=== PATIENT | female | born 1930 | race Caucasian/White ===

== ENCOUNTER 2016-06-06 06:19 | Emergency (ER) | payer MEDICARE, OTHER ==
[~2016-06-06] VITALS: Ht 165.1 cm; Wt 92.0 kg
[~2016-06-06 06:19] MED LIST: ALPR-138 PO; ASPI81 PO; ATEN1TAB75 PO; COZA100T PO; FURO20TA PO; LEVO.1 PO; LORTA5 PO; WARF2.5 PO; ZETI10TA5 PO
[2016-06-06 06:38] VITALS: BP 212/105; PULSE 102; RESP 20; TEMP 97.7; O2SAT 96
--- NOTE | 2016-06-06 06:47 | PD ---
HPI Chief Complaint: Injury Time Seen by Provider: 06:45 Travel History International Travel<30 days: No Contact w/Intl Traveler<30days: No Traveled to known affect area: No History of Present Illness HPI 86-year-old female with history of hypertension dyslipidemia atrial fibrillation on warfarin diabetes venous stasis disease and suspect lipodermatosclerosis who has been receiving wound care with bandaging of the left lower leg states last bandage application was on had done well until around midnight started noticing increasing pain to the left lower extremity extending up into the left groin. Patient has noted some swelling. No chest pain no shortness of breath no pleuritic pain no hemoptysis. Patient denies any chest pain shortness of breath sweats orthopnea or PND. Patient states that the pain to her left lower leg associated her she is unable to weight-bear and ambulate with walker assistance. Patient denies any fever or chills. Patient did not take her morning medications. Patient rates pain as 4/ 10 in intensity at this time but 8/10 in intensity with attempted weightbearing. PFSH Past Medical History Narrative Medical htn, dm, chf, afib, valular heart disease, chronic venous stasis, obesity, dyslipidemia, hypothyroidism; cystocele repair, hysterectomy; no tobacco use; nursing notes reviewed Arthritis: Yes Autoimmune Disease: No Blood Disorders: No Anxiety: No Depression: No Heart Rhythm Problems: Yes Cancer: No Cardiovascular Problems: Yes Chemotherapy: No Congestive Heart Failure: Yes Diabetes: Yes Endocrine: Yes Genitourinary: No Immune Disorder: No Musculoskeletal: Yes Neurologic: No Psychiatric: No Reproductive: No Respiratory: No Radiation Therapy: No Thyroid Disease: Yes Past Surgical History Abdominal Surgery: No AICD: No Arteriovenous Shunt: No Cardiac Surgery: No Ear Surgery: No Endocrine Surgery: No Eye Surgery: No Genitourinary Surgery: Yes (BLADDER TACKING) Gynecologic Surgery: Yes (HYST) Insulin Pump: No Joint Replacement: No Oral Surgery: No Pacemaker: No Thoracic Surgery: No Other Surgery: Yes Social History Alcohol Use: No Tobacco Use: No Substance Use: No Allergies-Medications (Allergen,Severity, Reaction): Coded Allergies: Sulfa (Unverified Allergy, Unknown, 12/22/13) Reported Meds & Prescriptions Reported Meds & Active Scripts Active Reported Synthroid (Levothyroxine Sodium) 88 Mcg Tab 88 Mcg PO DAILY Lasix (Furosemide) 20 Mg Tab 20 Mg PO DAILY Alprazolam 0.25 Mg Tab 0.25 Mg PO Q8H PRN Warfarin 2.5 Mg Tab 2.5 Mg PO DAILY Review of Systems Except as stated in HPI: all other systems reviewed are Neg General / Constitutional: No: Fever, Chills HENT: No: Congestion Cardiovascular: No: Chest Pain or Discomfort Respiratory: No: Shortness of Breath, Orthopnea, Pleuritic Pain Gastrointestinal: No: Nausea, Vomiting, Abdominal Pain Genitourinary: No: Dysuria Musculoskeletal: Positive: Edema (LLE), Pain (LLE), No: Myalgias, Arthralgias Skin: Positive Rash Neurologic: No: Weakness Psychiatric: No: Anxiety Hematologic/Lymphatic: No: Lymph Node Enlargement Physical Exam Narrative GENERAL: Well-developed well-nourished obese female in no acute distress no respiratory distress SKIN: Warm and dry. HEAD: Normocephalic. EYES: No scleral icterus. No injection or drainage. NECK: Supple, trachea midline. No JVD or lymphadenopathy. CARDIOVASCULAR: Regular rate and rhythm without murmurs, gallops, or rubs. RESPIRATORY: Breath sounds equal bilaterally. No accessory muscle use. GASTROINTESTINAL: Abdomen soft, non-tender, nondistended. MUSCULOSKELETAL: No cyanosis, or edema. Left lower extremity lower leg with erythema tenderness edema of the lower leg and upper leg with palpable dorsalis pedis pulse; no pallor or coolness of the extremity. BACK: Nontender without obvious deformity. No CVA tenderness. Data Data Last Documented VS Vital Signs Date Time Temp Pulse Resp B/P Pulse Ox O2 Delivery O2 Flow Rate FiO2 06/06/16 06:38 97.7 102 20 212/105 96 Orders Us Leg Venous Doppler (06/06/16 ) Complete Blood Count With Diff (06/06/16 06:47) Basic Metabolic Panel (Bmp) (06/06/16 06:47) Act Partial Throm Time (Ptt) (06/06/16 06:47) Prothrombin Time / Inr (Pt) (06/06/16 06:47) Tibia/Fibula (Ap/Lat) (06/06/16 ) Lactic Acid Sepsis Protocol (06/06/16 06:47) Blood Culture (06/06/16 06:47) Losartan (Cozaar) (06/06/16 07:00) Acetamin-Hydrocod 325-5 Mg ([place] 5-325 (06/06/16 07:00) MDM Medical Decision Making Medical Screen Exam Complete: Yes Emergency Medical Condition: Yes Medical Record Reviewed: Yes Differential Diagnosis lipodermatosclerosis, cellulitis, dvt, uncontrolled hypertension Narrative Course Dressing removed from left lower leg with evidence of erythema tenderness to palpation serous drainage; specimens collected and sent for resulting; imaging studies ordered; patient administered morning antihypertensive as well as Lortab for pain Care signed over to Dr Wilde for pending evaluation and disposition Hellen Madrid MD Jun 06, 2016 06:47
[2016-06-06] MEDS ORDERED: SYNT88TA PO (06:49)
[2016-06-06] MEDS ORDERED: FURO1TAB62 PO (06:49)
[2016-06-06] MEDS ORDERED: WARF-18 PO (06:49)
[2016-06-06] MEDS ORDERED: ALPR0.25 PO (06:49)
[2016-06-06] MEDS ORDERED: LOSARTAN 25 MG TAB PO ONE (07:00)
[2016-06-06] MEDS ORDERED: ACETAMINOPHEN/HYDROcodone 325 MG/5 MG TAB PO ONE (07:00)
[2016-06-06 07:23] VITALS: BP 202/95; PULSE 89; RESP 18; O2SAT 98
[2016-06-06 07:35] LABS: AUTOMATED NEUTROPHIL # 3.4 TH/MM3 (1.8-7.7); BASOPHIL % 0.5 % (0.0-2.0); EOSINOPHIL # 0.1 TH/MM3 (0-0.4); HEMATOCRIT 44.3 % (35.0-46.0); HEMO FLAGS DIFF FINAL; LYMPH % 15.7 % (9.0-44.0); LYMPHOCYTE # 0.7 TH/MM3 (1.0-4.8); MEAN CELL VOLUME 89.7 FL (80.0-100.0); MEAN CORPUSCULAR HEMOGLOBIN 29.4 PG (27.0-34.0); MEAN CORPUSCULAR HGB CONC 32.8 % (32.0-36.0); MONO % 8.8 % (0.0-8.0); PLATELET COUNT 174 TH/MM3 (150-450); RED BLOOD COUNT 4.94 MIL/MM3 (4.00-5.30); RED CELL DISTRIBUTION WIDTH 13.6 % (11.6-17.2); WHITE BLOOD COUNT 4.6 TH/MM3 (4.0-11.0)
[2016-06-06] MEDS ORDERED: ATEN50TA PO (07:39)
[2016-06-06] MEDS ORDERED: DONE10TA7 PO (07:39)
[2016-06-06] MEDS ORDERED: GLIM1TAB PO (07:39)
[2016-06-06] MEDS ORDERED: ASPI81CH7 CHEW (07:39)
[2016-06-06] MEDS ORDERED: ZETI10TA5 PO (07:39)
[2016-06-06] MEDS ORDERED: LOSA25TA PO (07:39)
[2016-06-06 07:46] LABS: APTT (PATIENT) 32.4 SEC (24.3-30.1); INTERNATIONAL NORMALIZED RATIO 1.7 RATIO
--- NOTE | 2016-06-06 07:46 | PD ---
Physical Exam Date Seen by Provider: Jun 06, 2016 Data Data Last Documented VS Vital Signs Date Time Temp Pulse Resp B/P Pulse Ox O2 Delivery O2 Flow Rate FiO2 06/06/16 08:17 93 18 178/77 98 Room Air 06/06/16 06:38 97.7 Orders Us Leg Venous Doppler (06/06/16 ) Complete Blood Count With Diff (06/06/16 06:47) Basic Metabolic Panel (Bmp) (06/06/16 06:47) Act Partial Throm Time (Ptt) (06/06/16 06:47) Prothrombin Time / Inr (Pt) (06/06/16 06:47) Tibia/Fibula (Ap/Lat) (06/06/16 ) Lactic Acid Sepsis Protocol (06/06/16 06:47) Blood Culture (06/06/16 06:47) Losartan (Cozaar) (06/06/16 07:00) Acetamin-Hydrocod 325-5 Mg ([place] 5-325 (06/06/16 07:00) Hydralazine Inj (Apresoline Inj) (06/06/16 08:00) Urinalysis - C+S If Indicated (06/06/16 07:49) Urine Culture (06/06/16 07:53) Cephalexin (Keflex) (06/06/16 08:30) Labs Laboratory Tests Test 06/06/16 06/06/16 06/06/16 07:00 07:53 07:58 White Blood Count 4.6 TH/MM3 Red Blood Count 4.94 MIL/MM3 Hemoglobin 14.5 GM/DL Hematocrit 44.3 % Mean Corpuscular Volume 89.7 FL Mean Corpuscular Hemoglobin 29.4 PG Mean Corpuscular Hemoglobin 32.8 % Concent Red Cell Distribution Width 13.6 % Platelet Count 174 TH/MM3 Mean Platelet Volume 8.8 FL Neutrophils (%) (Auto) 73.0 % Lymphocytes (%) (Auto) 15.7 % Monocytes (%) (Auto) 8.8 % Eosinophils (%) (Auto) 2.0 % Basophils (%) (Auto) 0.5 % Neutrophils # (Auto) 3.4 TH/MM3 Lymphocytes # (Auto) 0.7 TH/MM3 Monocytes # (Auto) 0.4 TH/MM3 Eosinophils # (Auto) 0.1 TH/MM3 Basophils # (Auto) 0.0 TH/MM3 CBC Comment DIFF FINAL Differential Comment Prothrombin Time 19.0 SEC Prothromb Time International 1.7 RATIO Ratio Activated Partial 32.4 SEC Thromboplast Time Lactic Acid Level 1.1 mmol/L Urine Collection Type CLEAN CATCH Urine Color YELLOW Urine Turbidity CLOUDY Urine pH 6.0 Urine Specific [place] 1.009 Urine Protein NEG mg/dL Urine Glucose (UA) NEG mg/dL Urine Ketones NEG mg/dL Urine Occult Blood TRACE Urine Nitrite NEG Urine Bilirubin NEG Urine Leukocyte Esterase LARGE Urine RBC 0-3 /hpf Urine WBC 15-19 /hpf Urine WBC Clumps OCC Urine Squamous Epithelial 0-5 /hpf Cells Urine Bacteria MANY /hpf Urine Yeast (Budding) MANY Microscopic Urinalysis Comment CULTURE INDICATED Sodium Level 143 MEQ/L Potassium Level 4.2 MEQ/L Chloride Level 108 MEQ/L Carbon Dioxide Level 27.1 MEQ/L Anion Gap 8 MEQ/L Blood Urea Nitrogen 22 MG/DL Creatinine 0.97 MG/DL Estimat Glomerular Filtration 55 ML/MIN Rate Random Glucose 143 MG/DL Calcium Level 8.7 MG/DL [facility] Supervised Visit with ZULLY: No Interpretation(s) Vital Signs Date Time Temp Pulse Resp B/P Pulse Ox O2 Delivery O2 Flow Rate FiO2 06/06/16 07:23 89 18 202/95 98 Room Air 06/06/16 07:23 98 Room Air 06/06/16 06:38 97.7 102 20 212/105 96 Microbiology Date/Time Procedure Status Source Growth 06/06/16 07:00 Aerobic Blood Culture Received Blood Peripheral Pending 06/06/16 07:00 Anaerobic Blood Culture Received Blood Peripheral Pending 06/06/16 07:15 Aerobic Blood Culture Received Blood Peripheral Pending 06/06/16 07:15 Anaerobic Blood Culture Received Blood Peripheral Pending Laboratory Tests Test 06/06/16 06/06/16 06/06/16 07:00 07:53 07:58 White Blood Count 4.6 TH/MM3 (4.0-11.0) Red Blood Count 4.94 MIL/MM3 (4.00-5.30) Hemoglobin 14.5 GM/DL (11.6-15.3) Hematocrit 44.3 % (35.0-46.0) Mean Corpuscular Volume 89.7 FL (80.0-100.0) Mean Corpuscular Hemoglobin 29.4 PG (27.0-34.0) Mean Corpuscular Hemoglobin 32.8 % Concent (32.0-36.0) Red Cell Distribution Width 13.6 % (11.6-17.2) Platelet Count 174 TH/MM3 (150-450) Mean Platelet Volume 8.8 FL (7.0-11.0) Neutrophils (%) (Auto) 73.0 % (16.0-70.0) Lymphocytes (%) (Auto) 15.7 % (9.0-44.0) Monocytes (%) (Auto) 8.8 % (0.0-8.0) Eosinophils (%) (Auto) 2.0 % (0.0-4.0) Basophils (%) (Auto) 0.5 % (0.0-2.0) Neutrophils # (Auto) 3.4 TH/MM3 (1.8-7.7) Lymphocytes # (Auto) 0.7 TH/MM3 (1.0-4.8) Monocytes # (Auto) 0.4 TH/MM3 (0-0.9) Eosinophils # (Auto) 0.1 TH/MM3 (0-0.4) Basophils # (Auto) 0.0 TH/MM3 (0-0.2) CBC Comment DIFF FINAL Differential Comment Prothrombin Time 19.0 SEC (9.8-11.6) Prothromb Time International 1.7 RATIO Ratio Activated Partial 32.4 SEC Thromboplast Time (24.3-30.1) Lactic Acid Level 1.1 mmol/L (0.4-2.0) Urine Collection Type CLEAN CATCH Urine Color YELLOW (YELLW/STRAW) Urine Turbidity CLOUDY (CLEAR) Urine pH 6.0 (5.0-8.5) Urine Specific [place] 1.009 (1.002-1.035) Urine Protein NEG mg/dL (NEG-TRACE) Urine Glucose (UA) NEG mg/dL (NEG) Urine Ketones NEG mg/dL (NEG) Urine Occult Blood TRACE (NEG) Urine Nitrite NEG (NEG) Urine Bilirubin NEG (NEG) Urine Leukocyte Esterase LARGE (NEG) Urine RBC 0-3 /hpf (0-3) Urine WBC 15-19 /hpf (0-5) Urine WBC Clumps OCC (NONE) Urine Squamous Epithelial 0-5 /hpf (0-5) Cells Urine Bacteria MANY /hpf (NONE) Urine Yeast (Budding) MANY (NONE) Microscopic Urinalysis Comment CULTURE INDICATED Sodium Level 143 MEQ/L (136-145) Potassium Level 4.2 MEQ/L (3.5-5.1) Chloride Level 108 MEQ/L (98-107) Carbon Dioxide Level 27.1 MEQ/L (21.0-32.0) Anion Gap 8 MEQ/L (5-15) Blood Urea Nitrogen 22 MG/DL (7-18) Creatinine 0.97 MG/DL (0.50-1.00) Estimat Glomerular Filtration 55 ML/MIN (>89) Rate Random Glucose 143 MG/DL (74-106) Calcium Level 8.7 MG/DL (8.5-10.1) Last Impressions Tibia/Fibula X-Ray 06/06/16 0000 Signed Impressions: Service Date/Time: Monday, June 06, 2016 07:23 - CONCLUSION: Unremarkable examination of the left tibia. Carroll Morrison MD Lower Extremity Ultrasound 06/06/16 0000 Signed Impressions: Service Date/Time: Monday, June 06, 2016 08:21 - CONCLUSION: Normal examination. Carroll Morrison MD Differential Diagnosis DVT, cellulitis, electrolyte abnormality, Coumadin coagulopathy, peripheral vascular disease, lipodermatosclerosis, uncontrolled hypertension Narrative Course Patient signed out to me by Dr Madrid: follow up with labs and US of legs Patient is an 86-year-old female with history of diabetic venous-stasis who is currently on Coumadin therapy, presents to emergency room with complaints of left lower leg pain and swelling. She reports that she is being treated for her venous-stasis and possibly lipodermosclerosis with compression socks and compression bandages to leg. Reports that these have been helping her as now she has pulses to her lle - reports that in the past, her doctor's could not feel pulses in her left foot. Reports that wound care placed new bandages to her left lower extremity on , reports increased pain to her leg radiating to her groin with increased swelling. Reports increased pain to leg and pain with ambulation. Pt with no recent fall or injury. Labs and US pending, pt comfortable at this time. Patient does have palpable pulses to her left lower extremity at this time. Will continue to monitor patient carefully CBC: WBC 4.6 Hemoglobin 14.5 Hematocrit 44.3 Platelets 174 BMP: Sodium 143 Chloride 108 Potassium 4.2 BUN 22 Creatinine 0.97 Lactic acid 1.1 Coags PT 19 PTT 32.4 INR 1.7 - pt is subtherapeutic on her coumadin UA: Large leuk esterase, 15-19wbc, many bacteria, many yeast xray of tib/fib: unremarkable US pending bp controlled with her oral dose of antihypertensive, pt did not receive dose of hydralazine in ER Ultrasound of the leg with no evidence of DVT INR 1.7, patient subtherapeutic Discussed with patient that she will be discharged home with instructions to follow-up with her primary care doctor. Patient understands that she will need to call her primary care doctor for further instructions her Coumadin as her INR is 1.7 and she is subtherapeutic Patient does have a bladder infection, which will also help treat her possible left lower extremity cellulitis. Doppler also the lower extremity negative, understands need for repeat ultrasound in 1 week if swelling persists Signs and symptoms of when to return to ER reviewed with patient in detail Patient initially agreeable to discharge, patient's daughter arrived emergency room to pick patient up, daughter reports that patient cannot ambulate by herself with her walker, reports the patient cannot go home as patient lives by herself and feels that is not safe for patient to be home by herself if she cannot ambulate or care for self. Patients daughter requests the patient be admitted to the hospital for this reason. reviewed case with chargemaster analyst, will get case management involved in case Diagnosis Primary Impression: Lower extremity edema Qualified Code: R60.0 - Edema of left lower extremity Additional Impressions: Subtherapeutic international normalized ratio (INR) UTI (urinary tract infection) Qualified Code: N30.01 - Acute cystitis with hematuria Cellulitis Patient Instructions: General Instructions, Narcotic given in the ED Additional Instruction: Please provide patient with a copy of her lab work as well as her ultrasound report performed while in the emergency room today Please follow-up with your primary care doctor as soon as possible Please follow-up with all cultures from today Please have a repeat ultrasound in her leg in 1 week if swelling persists Return to emergency room if symptoms worsen or progress Med/Other Pt SpecificInfo: Prescription(s) given Scripts Cephalexin (Keflex)500 Mg [id number] Mg PO Q6H 10 Days Ref 0 Prov:Chula Wilde DO 06/06/16 Disposition: 01 DISCHARGE HOME Condition: Stable Chula Wilde DO Jun 06, 2016 07:46
--- NOTE | 2016-06-06 07:56 | RADHPO ---
EXAM DATE/TIME: 06/06/2016 07:23 [facility] COMPARISON: No previous studies available for comparison. INDICATIONS : Left distal tib/fib pain with inflammation. No known injury. MEDICAL HISTORY : Diabetes mellitus type II. Hypertension. SURGICAL HISTORY : None. ENCOUNTER: Initial ACUITY: 2 months PAIN SCORE: 7/10 LOCATION: Left distal tib/fib FINDINGS: Two view examination of the left tibia demonstrates no evidence of fracture or dislocation. Bony min eralization is normal. The soft tissue structures are intact. CONCLUSION: Unremarkable examination of the left tibia. Carroll Morrison MD on June 06, 2016 at 7:54 Board Certified Radiologist. This report was verified electronically.
[2016-06-06] MEDS ORDERED: hydrALAZINE HCL 20 MG/ML VIAL IV PUSH ONE (08:00)
[2016-06-06 08:05] LABS: BLOOD, URINE TRACE (NEG); GLUCOSE,URINE NEG (NEG); KETONE, URINE NEG (NEG); NITRITE,URINE NEG (NEG)
[2016-06-06 08:10] LABS: METHOD OF COLLECTION CLEAN CATCH; URINE COLOR YELLOW (YELLW/STRAW)
[2016-06-06 08:12] LABS: POTASSIUM 4.2 MEQ/L (3.5-5.1)
[2016-06-06 08:12] LABS: BACTERIA, URINE MANY /hpf; COMMENT (UR) CULTURE INDICATED; CULTURE IF INDICATED CULTURE INDICATED; RBC, URINE 0-3 /hpf (0-3); SQUAMOUS EPITHELIAL CELL URINE 0-5 /hpf (0-5); WBC, URINE 15-19 /hpf (0-5)
[2016-06-06 08:15] LABS: BICARBONATE 27.1 MEQ/L (21.0-32.0)
[2016-06-06 08:17] VITALS: BP 178/77; PULSE 93; RESP 18; O2SAT 98
[2016-06-06] MEDS ORDERED: CEPHALEXIN MONOHYDRATE 500 MG CAP PO ONE (08:30)
--- NOTE | 2016-06-06 09:00 | RADHPO ---
EXAM DATE/TIME: 06/06/2016 08:21 [facility] COMPARISON: No previous studies available for comparison. INDICATIONS : Left leg swelling and pain. MEDICAL HISTORY : Hypertension. Congestive heart failure. Thyroid disease. Afib. Arthritis. Diabetes. SURGICAL HISTORY : Hysterectomy. Bladder tacking. ENCOUNTER: Initial ACUITY: 1 day PAIN SCORE: 4/10 LOCATION: Left leg. TECHNIQUE: Venous ultrasound of the leg was performed from the inguinal ligament to the proximal calf. Real-alfie e, color Doppler and spectral tracing, compression and augmentation techniques were used. FINDINGS: There is normal compressibility of the deep venous system from the inguinal region to the proximal ca lf. No echogenic clot is seen in the lumen of the common femoral, femoral, popliteal, and posterior tibial veins. There is a normal response of the venous system to proximal and distal augmentation an d respiration. CONCLUSION: Normal examination. Carroll Morrison MD on June 06, 2016 at 8:58 Board Certified Radiologist. This report was verified electronically.
[2016-06-06] MEDS ORDERED: CEPH-460 PO (10:19)
[2016-06-06 11:48] VITALS: BP 168/78
== END 2016-06-06 11:50 | disposition home or self-care (01) ==
LOC: PHED 06:19
DX: R60.0 Localized edema (principal); M79.662 Pain in left lower leg; N39.0 Urinary tract infection, site not specified; R82.90 Unspecified abnormal findings in urine; I50.9 Heart failure, unspecified; E03.9 Hypothyroidism, unspecified; E78.5 Hyperlipidemia, unspecified; I10 Essential (primary) hypertension; I48.91 Unspecified atrial fibrillation; Z79.01 Long term (current) use of anticoagulants
CPT/HCPCS: 73590; 80048; 81001; 83605; 85025; 85610; 85730; 87040; 87086; 93971

== ENCOUNTER 2016-06-13 16:06 | Observation (INO) | payer MEDICARE, OTHER ==
[2016-06-13] VITALS (8 sets, daily range): BP systolic 170–199; BP diastolic 81–94; PULSE 70–95; RESP 16–20; TEMP 97.4–97.7; O2SAT 96–99
[~2016-06-13] VITALS: Ht 153.7 cm; Wt 89.1 kg
[~2016-06-13 16:06] MED LIST changes: -ALPR-138 PO; +ALPR0.25 PO; -ASPI81 PO; +ASPI81CH7 CHEW; -ATEN1TAB75 PO; +ATEN50TA PO; +CEPH-460 PO; -COZA100T PO; +DONE10TA7 PO; +FURO1TAB62 PO; -FURO20TA PO; +GLIM1TAB PO; -LEVO.1 PO; -LORTA5 PO; +LOSA25TA PO; +SYNT88TA PO; +WARF-18 PO; -WARF2.5 PO
[2016-06-13] MEDS ORDERED: SODIUM CHLORIDE 0.9% FLUSH 5 ML FLUSH IVF PRN (16:30)
--- NOTE | 2016-06-13 16:31 | PD ---
HPI Chief Complaint: Chest Pain Time Seen by Provider: 16:15 Travel History International Travel<30 days: No Contact w/Intl Traveler<30days: No Traveled to known affect area: No History of Present Illness HPI Patient 86-year-old female presents with sharp intermittent chest pain under her left breast for the past couple of days. Patient states most recent episode happened about 3:30 lasted for only a few moments and resided. Patient states that she was not accompanied with shortness of breath palpitations nausea or vomiting. Patient does relate a history of having rehabilitation having to do a lot of arm work recently. Patient states in the wrap and her before. She does follow with Dr. John for atrial fibrillation. Currently her pain is resolved and she thinks her something wrong with her rib cage. PFSH Past Medical History Arthritis: Yes Autoimmune Disease: No Blood Disorders: No Anxiety: No Depression: No Heart Rhythm Problems: Yes Cancer: No Cardiovascular Problems: Yes Chemotherapy: No Congestive Heart Failure: Yes Diabetes: Yes Endocrine: Yes Genitourinary: No Immune Disorder: No Musculoskeletal: Yes Neurologic: No Psychiatric: No Reproductive: No Respiratory: No Radiation Therapy: No Thyroid Disease: Yes Menopausal: Yes Past Surgical History Abdominal Surgery: No AICD: No Arteriovenous Shunt: No Cardiac Surgery: No Ear Surgery: No Endocrine Surgery: No Eye Surgery: No Genitourinary Surgery: Yes (BLADDER TACKING) Gynecologic Surgery: Yes (HYST) Insulin Pump: No Joint Replacement: No Oral Surgery: No Pacemaker: No Thoracic Surgery: No Other Surgery: Yes Social History Alcohol Use: No Tobacco Use: No Substance Use: No Allergies-Medications (Allergen,Severity, Reaction): Coded Allergies: Sulfa (Unverified Allergy, Unknown, 06/13/16) Reported Meds & Prescriptions Reported Meds & Active Scripts Active Keflex (Cephalexin) 500 Mg Cap 500 Mg PO Q6H 10 Days Reported Fluoxetine (Fluoxetine HCl) 10 Mg Tab 10 Mg PO DAILY Glimepiride 1 Mg Tab 1 Mg PO DAILY Take with breakfast or first main meal Zetia (Ezetimibe) 10 Mg Tab 10 Mg PO DAILY Atenolol 50 Mg Tab 50 Mg PO DAILY Losartan (Losartan Potassium) 25 Mg Tab 25 Mg PO DAILY Aspirin Children's (Aspirin) 81 Mg Chew 81 Mg CHEW DAILY Synthroid (Levothyroxine Sodium) 88 Mcg Tab 88 Mcg PO DAILY Lasix (Furosemide) 20 Mg Tab 20 Mg PO DAILY Warfarin 2.5 Mg Tab 2.5 Mg PO DAILY Review of Systems Except as stated in HPI: all other systems reviewed are Neg Physical Exam Narrative GENERAL: Well-developed well-nourished in apparent distress. SKIN: Warm and dry. Left lower extremity is wrapped in [place]. She states that home health nurse is becoming and treating her at home with Neosporin. HEAD: Atraumatic. Normocephalic. EYES: Pupils equal and round. No scleral icterus. No injection or drainage. ENT: No nasal bleeding or discharge. Mucous membranes pink and moist. NECK: Trachea midline. No JVD. CARDIOVASCULAR: Regular rate and rhythm. No murmur appreciated. There is some tenderness in the midaxillary region just inferior to the lateral most breast. No lesion no bruising no laceration. 2+ bilateral equal pulses in all 4 extremities. RESPIRATORY: No accessory muscle use. Clear to auscultation. Breath sounds equal bilaterally. GASTROINTESTINAL: Abdomen soft, non-tender, nondistended. Hepatic and splenic margins not palpable. MUSCULOSKELETAL: No obvious deformities. No clubbing. No cyanosis. No edema. NEUROLOGICAL: Awake and alert. No obvious cranial nerve deficits. Motor grossly within normal limits. Normal speech. PSYCHIATRIC: Appropriate mood and affect; insight and judgment normal. Data Data Last Documented VS Vital Signs Date Time Temp Pulse Resp B/P Pulse Ox O2 Delivery O2 Flow Rate FiO2 06/13/16 16:53 195/86 199/93 06/13/16 16:30 97.7 95 18 99 06/13/16 16:25 Room Air Orders Electrocardiogram (06/13/16 16:25) Ckmb (Isoenzyme) Profile (06/13/16 16:25) Complete Blood Count With Diff (06/13/16 16:25) Comprehensive Metabolic Panel (06/13/16 16:25) Magnesium (Mg) (06/13/16 16:25) Prothrombin Time / Inr (Pt) (06/13/16 16:25) Act Partial Throm Time (Ptt) (06/13/16 16:25) Troponin I (06/13/16 16:25) Ecg Monitoring (06/13/16 16:25) Bilateral Bp Monitoring (06/13/16 16:25) Iv Access Insert/Monitor (06/13/16 16:25) Oximetry (06/13/16 16:25) Oxygen Administration (06/13/16 16:25) Sodium Chloride 0.9% Flush (Ns Flush) (06/13/16 16:30) Chest, Pa & Lat (06/13/16 16:25) Troponin I (06/13/16 17:56) Electrocardiogram (06/13/16 ) Aspirin Chew (Aspirin Chew) (06/13/16 18:15) Admit Order (Ed Use Only) (06/13/16 ) Labs Laboratory Tests Test 06/13/16 06/13/16 06/13/16 16:25 17:11 18:00 White Blood Count 6.6 TH/MM3 Red Blood Count 5.06 MIL/MM3 Hemoglobin 14.8 GM/DL Hematocrit 44.7 % Mean Corpuscular Volume 88.3 FL Mean Corpuscular Hemoglobin 29.3 PG Mean Corpuscular Hemoglobin 33.2 % Concent Red Cell Distribution Width 13.5 % Platelet Count 210 TH/MM3 Mean Platelet Volume 8.5 FL Neutrophils (%) (Auto) 71.7 % Lymphocytes (%) (Auto) 16.8 % Monocytes (%) (Auto) 10.2 % Eosinophils (%) (Auto) 0.8 % Basophils (%) (Auto) 0.5 % Neutrophils # (Auto) 4.7 TH/MM3 Lymphocytes # (Auto) 1.1 TH/MM3 Monocytes # (Auto) 0.7 TH/MM3 Eosinophils # (Auto) 0.1 TH/MM3 Basophils # (Auto) 0.0 TH/MM3 CBC Comment DIFF FINAL Differential Comment Prothrombin Time 18.2 SEC Prothromb Time International 1.6 RATIO Ratio Activated Partial 35.0 SEC Thromboplast Time Sodium Level 140 MEQ/L Potassium Level 4.0 MEQ/L Chloride Level 101 MEQ/L Carbon Dioxide Level 30.9 MEQ/L Anion Gap 8 MEQ/L Blood Urea Nitrogen 21 MG/DL Creatinine 1.10 MG/DL Estimat Glomerular Filtration 47 ML/MIN Rate Random Glucose 87 MG/DL Calcium Level 9.0 MG/DL Magnesium Level 2.0 MG/DL Total Bilirubin 1.2 MG/DL Aspartate Amino Transf 14 U/L (AST/SGOT) Alanine Aminotransferase 19 U/L (ALT/SGPT) Alkaline Phosphatase 93 U/L Total Creatine Kinase 84 U/L Troponin I LESS THAN 0.02 LESS THAN 0.02 NG/ML NG/ML Total Protein 7.6 GM/DL Albumin 3.5 GM/DL MDM Medical Decision Making Medical Screen Exam Complete: Yes Emergency Medical Condition: Yes Interpretation(s) EKG says H or fibrillation with an overall ventricular rate of 80, normal axis and normal R-wave progression. There is isolated T-wave flattening bordering on inversion in lead III. His nonspecific change. Comparison to 11/09/2007 shows no significant change. Differential Diagnosis ACS, NV, chest wall pain, muscle strain, muscle strain, rib fracture. Narrative Course Review the patient's records shows that on June 06 of this year patient had a an ultrasound of the bilateral lower extremity showing no DVT. Patient arrival is chest pain-free. She does take a baby aspirin every morning. Hold his aspirin was given in the emergency department. Her symptoms are highly atypical for ACS however patient has multiple risk factors, obesity, hypertension, lipidemia, diabetes. She's not had a stress test in some time. She is followed by Dr. John. Discussed with the patient that her symptoms are atypical but she does have significant risk factors. Discussed with recommend he do follow up with Dr. Richmond admission to the hospital for consideration of a stress test. They are unsure whether they can get in Dr. Lenz nurse's weak and not for observation. Patient was discussed with Dr. Solo who placed in observation status. Initial EKG negative, repeat EKG showed no change. Initial troponin negative. Considering patient's only been having symptoms since 3:30 the patient's troponin was repeated at 6:30. This test is pending on admission. Diagnosis Primary Impression: Chest pain Qualified Code: R07.9 - Chest pain, unspecified type Admitting Information Admitting Physician Requests: Observation Condition: Stable Yevgeniy Pantoja MD Jun 13, 2016 16:31
[2016-06-13 16:43] LABS: AUTOMATED NEUTROPHIL # 4.7 TH/MM3 (1.8-7.7); BASOPHIL % 0.5 % (0.0-2.0); EOSINOPHIL # 0.1 TH/MM3 (0-0.4); EOSINOPHIL % 0.8 % (0.0-4.0); HEMATOCRIT 44.7 % (35.0-46.0); HEMO FLAGS DIFF FINAL; LYMPH % 16.8 % (9.0-44.0); LYMPHOCYTE # 1.1 TH/MM3 (1.0-4.8); MEAN CELL VOLUME 88.3 FL (80.0-100.0); MEAN CORPUSCULAR HEMOGLOBIN 29.3 PG (27.0-34.0); MEAN CORPUSCULAR HGB CONC 33.2 % (32.0-36.0); MONO % 10.2 % (0.0-8.0); NEUT % 71.7 % (16.0-70.0); PLATELET COUNT 210 TH/MM3 (150-450); RED BLOOD COUNT 5.06 MIL/MM3 (4.00-5.30); RED CELL DISTRIBUTION WIDTH 13.5 % (11.6-17.2); WHITE BLOOD COUNT 6.6 TH/MM3 (4.0-11.0)
[2016-06-13] MEDS ORDERED: FLUO10TA PO (16:47)
[2016-06-13 17:14] LABS: INTERNATIONAL NORMALIZED RATIO 1.6 RATIO; PROTHROMBIN TIME - PATIENT 18.2 SEC (9.8-11.6)
--- NOTE | 2016-06-13 17:23 | RADHPO ---
EXAM DATE/TIME: 06/13/2016 16:54 [place] COMPARISON: No previous studies available for comparison. INDICATIONS : Chest pain MEDICAL HISTORY : Congestive heart failure. SURGICAL HISTORY : None. ENCOUNTER: Initial ACUITY: 2 days PAIN SCORE: 10/10 LOCATION: Left chest FINDINGS: The heart is mildly enlarged. Minimal central pulmonary vascular congestion is noted. There is no a cute focal alveolar consolidation. Degenerative changes and scoliosis of the thoracic spine are note d. CONCLUSION: 1. Cardiomegaly. 2. Minimal central pulmonary vascular congestion. 3. Degenerative changes and scoliosis of the thoracic spine. Yevgeniy Crawley MD on June 13, 2016 at 17:19 Board Certified Radiologist. This report was verified electronically.
[2016-06-13 17:25] LABS: CHLORIDE 101 MEQ/L (98-107); SODIUM (NA) 140 MEQ/L (136-145)
[2016-06-13 17:29] LABS: ANION GAP 8 MEQ/L (5-15); BICARBONATE 30.9 MEQ/L (21.0-32.0); BLOOD UREA NITROGEN 21 MG/DL (7-18)
[2016-06-13 17:32] LABS: ALT (GPT) 19 U/L (10-53); AST (GOT) 14 U/L (15-37); GLOMERULAR FILTRATION RATE 47 ML/MIN (>89)
[2016-06-13 17:33] LABS: TOTAL BILIRUBIN ADULT 1.2 MG/DL (0.2-1.0)
[2016-06-13 17:35] LABS: ALKALINE PHOSPHATASE 93 U/L (45-117)
[2016-06-13 17:38] LABS: CREATINE KINASE 84 U/L (26-192)
[2016-06-13] MEDS ORDERED: ASPIRIN 81 MG CHEW TAB CHEW ONE (18:15)
--- NOTE | 2016-06-13 21:26 | EKG ---
Date Performed: 06/13/2016 Time Performed: 18:00:02 PTAGE: 86 years EKG: Atrial fibrillation Inferior/lateral ST changes are nonspecific Abnormal ECG PREVIOUS TRACING : 06/13/2016 16.10 No significant change from previous tracing noted. DOCTOR: Fausto Luz Interpretating Date/Time 06/13/2016 21:24:38
--- NOTE | 2016-06-13 21:29 | EKG ---
Date Performed: 06/13/2016 Time Performed: 16:10:42 PTAGE: 86 years EKG: Atrial fibrillation Inferior ST changes are nonspecific Abnormal ECG PREVIOUS TRACING : 11/15/2008 21.58 Compared to previous tracing, atrial fibrillation has repla becky Sinus rhythm with PACs. DOCTOR: Fausto Luz Interpretating Date/Time 06/13/2016 21:27:58
[2016-06-13] MEDS ORDERED: ONDANSETRON HCL 4 MG/2 ML VIAL IVP PRN (23:15)
[2016-06-13] MEDS ORDERED: NALOXONE HCL 0.4 MG/ML AMP IV PRN (23:15)
[2016-06-13] MEDS ORDERED: SODIUM CHLORIDE 0.9% FLUSH 5 ML FLUSH FLUSH PRN (23:15)
[2016-06-13] MEDS ORDERED: ACETAMINOPHEN 325 MG TAB PO PRN (23:15)
[2016-06-14] VITALS (7 sets, daily range): BP systolic 145–178; BP diastolic 50–90; PULSE 71–92; RESP 16–20; TEMP 96–97.4; O2SAT 95–98
[2016-06-14] MEDS: EZETIMIBE 10 MG TAB PO SCH (10:06)
[2016-06-14] MEDS: SODIUM CHLORIDE 0.9% FLUSH 5 ML FLUSH FLUSH SCH ×2 (10:07→21:39)
[2016-06-14] MEDS: ASPIRIN 81 MG CHEW TAB CHEW SCH (10:07)
[2016-06-14] MEDS: FUROSEMIDE 20 MG TAB PO SCH (10:07)
[2016-06-14] MEDS: LOSARTAN 25 MG TAB PO SCH (10:07)
[2016-06-14] MEDS: ATENOLOL 50 MG TAB PO SCH (10:07)
[2016-06-14] MEDS: CEPHALEXIN MONOHYDRATE 500 MG CAP PO SCH ×4 (10:09→23:03)
[2016-06-14 10:14] LABS: INTERNATIONAL NORMALIZED RATIO 1.8 RATIO; PROTHROMBIN TIME - PATIENT 20.2 SEC (9.8-11.6)
[2016-06-14] MEDS: GLIMEPIRIDE 1 MG TAB PO SCH (10:43)
[2016-06-14] MEDS: FLUoxetine HCL 10 MG CAP PO SCH (10:43)
[2016-06-14] MEDS: LEVOTHYROXINE SODIUM 88 MCG TAB PO SCH (10:43)
--- NOTE | 2016-06-14 12:45 | MH ---
cc: PAUL MAGANA MD DATE OF ADMISSION: 06/13/2016 CHIEF COMPLAINT Chest pain. HISTORY OF PRESENT ILLNESS This is an 86-year-old female with past medical and surgical history significant for arthritis, atrial fibrillation, congestive heart failure, diabetes mellitus, hypothyroidism, history of bladder surgery and history of hysterectomy who came to the ER at [facility] complaining of sharp chest pain which was on the left lower side and this pain began at about 03:30 yesterday and lasted for a few minutes. It was not accompanied with shortness of breath or any palpitation or any nausea or vomiting and no radiation. It was a localized pain. Denies any painful breathing or worsening of the pain with deep breathing from that side. She has been in a rehab and getting physical therapy. Other than that, when I examined the patient the patient denies any chest pain at the time of the examination. Denies any fever, chills cough. Denies any nausea or vomiting, diarrhea, constipation. Denies any blood in the stool, black stool or any other symptoms. Other than that nothing significant. PAST MEDICAL-SURGICAL HISTORY As dictated above. SOCIAL HISTORY Denies smoking or taking any drugs. She lives at home alone. She is retired dancer. ALLERGY SULFA DRUGS. MEDICATIONS 1. Keflex 500 mg q. 6 hours for tendons. 2. Fluoxetine 10 mg p.o. daily. 3. Glimepiride 1 mg p.o. daily. 4. Zetia 10 mg p.o. daily. 5. Atenolol 50 mg p.o. daily. 6. Losartan 25 mg p.o. daily. 7. Aspirin 81 mg daily. 8. Synthroid 88 mcg p.o. daily. 9. Lasix 20 mg p.o. daily. 10. Coumadin 2.5 mg p.o. daily. REVIEW OF SYSTEMS All review of systems are positive at the time of the examination. PHYSICAL EXAMINATION GENERAL: This is an 86-year-old female, laying on the bed, not in any acute distress. VITAL SIGNS: Temperature is 96.0, heart rate 90, respirations 18, blood pressure 149/90, O2 saturation 96% at room air. HEENT: Normocephalic, atraumatic. EOMI. PERRLA. Oral mucosa moist. NECK: Supple. No visible thyromegaly or neck mass. Trachea central. CVS: Regular rate and rhythm. LUNGS: Respirations clear to auscultation bilaterally. ABDOMEN: Soft, nontender. Bowel sounds audible. EXTREMITIES: No pedal edema, no calf tenderness, no joint swelling or erythema. Full range of motion of all extremities. NEUROLOGIC: Awake, alert, oriented x 4. No focal deficits. SKIN: Warm and dry. PSYCHIATRIC: The patient is cooperative. Mood and affect is normal. LABORATORY DATA CBC is totally unremarkable except for neutrophils of 71.7 - high. Monos 10.2 - high. BUN 21 - high, creatinine 1.10 - high. Total bilirubin 1.2 - high. AST 40 - low. Cardiac enzymes - Troponin I 0.02 x 3. Total protein 7.6, albumin 3.5, PT 18.2, INR 1.6, APTT 35.0. Another PT done today shows PT 20.2, INR 1.8. X-RAYS Chest x-ray was done and shows cardiomegaly, minimal central pulmonary vascular congestion, degenerative changes and scoliosis of the thoracic spine. ASSESSMENT AND PLAN 1. This is an 86-year-old female who came to the ER diagnosed with chest pain, rule out acute coronary syndrome. Cardiac enzymes, troponin I x 3 within normal limits. Looks like atypical chest pain. Cardiology consulted. Further recommendation per Cardiology. 2. History of atrial fibrillation. Continue home medication. The patient is on Coumadin, checking INR daily. INR today 1.8. The patient is on atenolol. 3. History of congestive heart failure most likely chronic with systolic heart failure. The patient is on Lasix. 4. History of hypertension. Continue home medications. 5. History of hyperlipidemia. Continue home medications. 6. History of diabetes mellitus. AD 1800 calorie diet. NovoLog low-dose sliding scale. Check blood sugars at bedtime. Monitor blood sugar closely. 7. History of depression. Continue fluoxetine. 8. Hypothyroidism. Continue with levothyroxine 88 mcg p.o. daily. 9. DVT prophylaxis. The patient is on Coumadin. 10. GI prophylaxis. Protonix 40 mg p.o. daily. 11. We are going to manage the patient on a daily basis and make recommendations on a daily basis. Paul Magana MD EA/FOREIGN /12:02 PM /12:13 PM
[2016-06-14] MEDS: PANTOPRAZOLE SOD 40 MG DELAYED RELEASE TAB PO SCH (13:39)
[2016-06-14] MEDS ORDERED: WARFARIN SOD 2.5 MG TAB PO SCH (16:00)
[2016-06-15] VITALS: BP 184/78; PULSE 82; RESP 18; TEMP 97.8; O2SAT 98
[2016-06-15 04:00] VITALS: BP 153/89; PULSE 85; RESP 18; TEMP 97.7; O2SAT 98
[2016-06-15] MEDS: LEVOTHYROXINE SODIUM 88 MCG TAB PO SCH (05:56)
[2016-06-15] MEDS: CEPHALEXIN MONOHYDRATE 500 MG CAP PO SCH (05:56)
[2016-06-15 06:36] LABS: PROTHROMBIN TIME - PATIENT 22.3 SEC (9.8-11.6)
[2016-06-15 08:00] VITALS: BP 179/90; PULSE 76; RESP 20; TEMP 98; O2SAT 99
--- NOTE | 2016-06-15 08:01 | HHI.PR ---
Subjective History of Present Illness Patient feel better D/W RN TAVARES Perez at bed side..OK to DC Per cardiology. Review of Systems Constitutional Constitutional Remarks All ROS Normal. Vitals/Results Intake & Output 06/14/16 06/14/16 06/15/16 15:00 23:00 07:00 Intake Total 0 ml 240 ml 420 ml Balance 0 ml 240 ml 420 ml Intake Oral 0 ml 240 ml 420 ml # Voids 4 1 2 # Bowel Movements 0 0 Vital Signs Vital Signs Date Time Temp Pulse Resp B/P Pulse Ox O2 Delivery O2 Flow Rate FiO2 06/15/16 04:00 97.7 85 18 153/89 98 06/15/16 00:00 97.8 82 18 184/78 98 06/14/16 20:00 77 06/14/16 20:00 97.4 78 16 158/86 97 06/14/16 19:45 97 21 06/14/16 16:00 96.5 72 20 154/50 96 06/14/16 12:00 96.4 85 18 145/77 97 CBC/BMP: 06/13/16 1625 06/13/16 1711 Lab Results Laboratory Tests Test 06/14/16 06/15/16 10:00 06:10 Prothrombin Time 20.2 SEC 22.3 SEC Prothromb Time International 1.8 RATIO 2.0 RATIO Ratio Physical Exam General General Appearance: No Acute Distress, Comfortable Eyes Eye Exam: Pupils Equal, Pupils Reactive, Sclera White, Extraocular Movement Intact Throat Throat Exam: Oral Mucosa [place] & Moist, Oral Pharynx Normal Neck Neck Exam: Neck Supple, Trachea Midline Pulmonary Resp Exam: Clear Bilaterally, Breath Sounds Equal, No Distress Cardiology CV Exam: Regular Gastrointestinal/Abdomen GI Exam: Soft, Non-Tender, Bowel Sounds Present Musculoskeletal MS Exam: Joints Intact, Normal Tone Integumentary Skin Exam: Clear, Warm, Dry, Intact, Normal Turgor Extremeties Extremities Exam: No Edema Neurologic Neuro Exam: Alert, Awake, Oriented, Speech Clear, Moving All Extremities, No Focal Deficits VTE Prophylaxis VTE Prophylaxis Meds: Coumadin PUD Prophylasis PUD Prophylaxis: Protonix Assessment/Plan Assessment/Plan ASSESSMENT AND PLAN 1. This is an 86-year-old female who came to the ER diagnosed with chest pain, rule out acute coronary syndrome. Cardiac enzymes, troponin I x 3 within normal limits. Looks like atypical chest pain. Cardiology consulted. Further recommendation per Cardiology...ok to DC Per cardiology 2. History of atrial fibrillation. Continue home medication. The patient is on Coumadin, checking INR daily. INR today 2.0. The patient is on atenolol. 3. History of congestive heart failure most likely chronic with systolic heart failure. The patient is on Lasix. 4. History of hypertension. Continue home medications. 5. History of hyperlipidemia. Continue home medications. 6. History of diabetes mellitus. AD 1800 calorie diet. NovoLog low-dose sliding scale. Check blood sugars at bedtime. Monitor blood sugar closely. 7. History of depression. Continue fluoxetine. 8. Hypothyroidism. Continue with levothyroxine 88 mcg p.o. daily. 9. DVT prophylaxis. The patient is on Coumadin. 10. GI prophylaxis. Protonix 40 mg p.o. daily. OK to DC home today. f/u with PCP/ Cardiology 1 week. Discussed Condition with: Patient Paul Rivera MD Jun 15, 2016 08:01
[2016-06-15] MEDS: EZETIMIBE 10 MG TAB PO SCH (08:03)
[2016-06-15] MEDS: FLUoxetine HCL 10 MG CAP PO SCH (08:03)
[2016-06-15] MEDS: GLIMEPIRIDE 1 MG TAB PO SCH (08:03)
[2016-06-15] MEDS: LOSARTAN 25 MG TAB PO SCH (08:03)
[2016-06-15] MEDS: ATENOLOL 50 MG TAB PO SCH (08:03)
[2016-06-15] MEDS: SODIUM CHLORIDE 0.9% FLUSH 5 ML FLUSH FLUSH SCH (08:03)
[2016-06-15] MEDS: PANTOPRAZOLE SOD 40 MG DELAYED RELEASE TAB PO SCH (08:03)
[2016-06-15] MEDS: FUROSEMIDE 20 MG TAB PO SCH (08:03)
[2016-06-15] MEDS: ASPIRIN 81 MG CHEW TAB CHEW SCH (08:03)
--- NOTE | 2016-06-15 10:05 | MB ---
cc: PORFIRIO JOHN M.D., EJAZ MD GIERBOLINI, JOSE R. M.D. DATE OF CONSULTATION: 06/14/2016 HISTORY OF PRESENT ILLNESS Thank you Dr. Rivera for asking us to see this very pleasant elderly white female who presents with sharp intermittent pain under her left breast for the past couple of days. She denies any chest pain on exertion and states that she is feeling much better. She has a past history of atrial fibrillation, congestive heart failure, diabetes, SVT. She has been on Coumadin. She had some left lower side pain that began at 3:30 and lasted for a few minutes. At this point she is not having any more chest pain and states that she wants to go home. PAST MEDICAL HISTORY 1. Atrial fibrillation. 2. SVT. 3. Congestive heart failure. 4. Hypertension. 5. Hyperlipidemia. 6. Diabetes. 7. Hypothyroidism. 8. Osteopenia. 9. Hysterectomy. 10.Bladder surgery in 1989. 11.Varicose vein surgery in 1968 and 1969. FAMILY HISTORY Noncontributory. SOCIAL HISTORY Non-smoker, does not abuse alcohol. ALLERGIES None. MEDICATIONS 1. Fluoxetine. 2. Keflex. 3. Glimepiride. 4. Zetia. 5. Atenolol. 6. Losartan. 7. Aspirin. 8. Synthroid. 9. Lasix. 10.Coumadin. REVIEW OF SYSTEMS Denies seizure, headache, vomiting, diarrhea, dysuria or hematuria, blood in the stool or chest pain. PHYSICAL EXAMINATION VITAL SIGNS: Pulse 71, blood pressure 154/50, respirations 20. HEENT: Eyes show no xanthelasma. Mouth shows no cyanosis or pallor. NECK: No JVD. HEART: Two heart sounds. No murmurs. CHEST: Clear. ABDOMEN: Soft. No hepatosplenomegaly. EXTREMITIES: Legs reveal no evidence of edema. NEUROLOGIC: Grossly intact. LABORATORY TESTS White count 6.6, hemoglobin 14.8, platelet count 210,000. Troponin x3 less than 0.02. BUN 21, creatinine 1.0. INR 1.8. EKG DATA EKG shows atrial fibrillation with nonspecific ST-T wave changes. ASSESSMENT AND PLAN At this point she has ruled out for myocardial infarction. She has atrial fibrillation but is on Coumadin. I feel she can managed medically. Her chest pains appear to be atypical. At this point I do not feel we need to do any further investigations. She can be discharged as per Dr. Rivera and we will see her in the office in due course. She had a nuclear stress test in 2006. We may repeat this when we see her in the office if she still has complaints of chest pain. Thank you for asking us see to see this lady who appears to be much older than her stated age. Porfirio John MD, FRCP,FAC HAJ/BT /6:33 PM /9:46 AM MTDD
== END 2016-06-15 12:42 | disposition home or self-care (01) ==
LOC: PHED 16:06 → PHEDA 18:11 → PH3A 21:10
PROVIDERS: ADMIT Specialist; ATTEND Specialist
DX: R07.89 Other chest pain (principal); I48.91 Unspecified atrial fibrillation; I11.0 Hypertensive heart disease with heart failure; I50.9 Heart failure, unspecified; E11.9 Type 2 diabetes mellitus without complications; E78.5 Hyperlipidemia, unspecified; E03.9 Hypothyroidism, unspecified; M85.80 Other specified disorders of bone density and structure, unspecified site; M19.90 Unspecified osteoarthritis, unspecified site; Z90.710 Acquired absence of both cervix and uterus; Z79.82 Long term (current) use of aspirin; Z79.4 Long term (current) use of insulin; Z79.01 Long term (current) use of anticoagulants
CPT/HCPCS: 71020; 80053; 82550; 83735; 84484; 85025; 85610; 85730; 93005; 99285; G0378

== ENCOUNTER 2017-01-11 20:34 | Emergency (ER) | payer MEDICARE, OTHER ==
[~2017-01-11] VITALS: Ht 154.9 cm; Wt 86.3 kg
[~2017-01-11 20:34] MED LIST changes: -ALPR0.25 PO; -DONE10TA7 PO; +FLUO10TA PO
[2017-01-11 20:41] VITALS: BP 195/80; PULSE 78; RESP 20; TEMP 97.6
[2017-01-11 22:26] VITALS: BP 179/97; RESP 18; O2SAT 96
--- NOTE | 2017-01-11 22:49 | PD ---
HPI Chief Complaint: Abdominal Pain Time Seen by Provider: 22:38 Travel History International Travel<30 days: No Contact w/Intl Traveler<30days: No Traveled to known affect area: No History of Present Illness HPI The patient is an 86-year-old female that complained of diffuse abdominal pain at 3 PM this evening without nausea, fever, vomiting or diarrhea. The pain is totally gone now. She does have a history of chronic low back pain. The patient is on Coumadin for atrial fibrillation. PFSH Past Medical History Hx Anticoagulant Therapy: Yes (COUMADIN) Arthritis: Yes Atrial Fibrillation: Yes Autoimmune Disease: No Blood Disorders: No Anxiety: No Depression: No Heart Rhythm Problems: Yes (AFIB) Cancer: No Cardiovascular Problems: Yes Chemotherapy: No Congestive Heart Failure: Yes Dementia: Yes Diabetes: Yes Patient Takes Glucophage: No Diminished Hearing: Yes Endocrine: Yes Genitourinary: No Immune Disorder: No Musculoskeletal: Yes Neurologic: No Psychiatric: No Reproductive: No Respiratory: Yes Immunizations Current: Yes Radiation Therapy: No Thyroid Disease: Yes Menopausal: Yes Past Surgical History Abdominal Surgery: No AICD: No Arteriovenous Shunt: No Cardiac Surgery: No Ear Surgery: No Endocrine Surgery: No Eye Surgery: No Genitourinary Surgery: Yes (BLADDER LIFTING ) Gynecologic Surgery: No Hysterectomy: Yes Insulin Pump: No Joint Replacement: No Oral Surgery: No Pacemaker: No Thoracic Surgery: No Other Surgery: Yes (VEIN STRIPPING) Social History Alcohol Use: No Tobacco Use: No Substance Use: No Allergies-Medications (Allergen,Severity, Reaction): Coded Allergies: Sulfa (Verified Allergy, Unknown, 01/11/17) Reported Meds & Prescriptions Reported Meds & Active Scripts Active Reported Fluoxetine (Fluoxetine HCl) 10 Mg Tab 10 Mg PO DAILY Glimepiride 1 Mg Tab 1 Mg PO DAILY Take with breakfast or first main meal Zetia (Ezetimibe) 10 Mg Tab 10 Mg PO DAILY Atenolol 50 Mg Tab 50 Mg PO DAILY Aspirin Children's (Aspirin) 81 Mg Chew 81 Mg CHEW DAILY Synthroid (Levothyroxine Sodium) 88 Mcg Tab 88 Mcg PO DAILY Lasix (Furosemide) 20 Mg Tab 20 Mg PO DAILY Warfarin 2.5 Mg Tab 2.5 Mg PO DAILY Review of Systems Except as stated in HPI: all other systems reviewed are Neg Physical Exam Narrative GENERAL: Well-nourished, well-developed, alert and oriented elderly patient in no apparent distress. Her vital signs show blood pressure 179/97 and are otherwise normal. SKIN: Focused skin assessment warm/dry. HEAD: Normocephalic. EYES: No scleral icterus. No injection or drainage. NECK: Supple, trachea midline. No JVD or lymphadenopathy. CARDIOVASCULAR: Regular rate and rhythm without murmurs, gallops, or rubs. RESPIRATORY: Breath sounds equal bilaterally. No accessory muscle use. GASTROINTESTINAL: Abdomen soft, non-tender, nondistended. MUSCULOSKELETAL: No cyanosis, or edema. BACK: Nontender without obvious deformity. No CVA tenderness. There is slight tenderness around the left of L3, L4, L5 without any associated deformity. The patient apparently does have chronic back pain. Straight leg raising is normal. Data Data Last Documented VS Vital Signs Date Time Temp Pulse Resp B/P Pulse Ox O2 Delivery O2 Flow Rate FiO2 01/11/17 22:26 18 179/97 96 Room Air 01/11/17 20:41 97.6 78 MDM Medical Decision Making Medical Screen Exam Complete: Yes Emergency Medical Condition: Yes Medical Record Reviewed: Yes Differential Diagnosis Intestinal colicresolved, abdominal pain etiology undeterminedresolved, chronic low back pain, compression fracturehighly unlikely Narrative Course The patient's abdominal pain pain is completely resolved. She does have chronic low back pain but there is no tenderness directly over the posterior spinous processes and compression fracture appears unlikely. Diagnosis Primary Impression: Abdominal pain of unknown etiology Additional Impression: Chronic low back pain Additional Instructions: As we discussed, plain Tylenol as the safest thing to take when you are on Coumadin. Avoid narcotics for your back pain because they can be constipating. Follow-up with your primary care physician. Disposition: 01 DISCHARGE HOME Condition: Stable Lalito Cabral MD Jan 11, 2017 22:49
== END 2017-01-11 23:11 | disposition home or self-care (01) ==
LOC: PHED 20:34
DX: R10.9 Unspecified abdominal pain (principal); M54.5 Low back pain; I48.91 Unspecified atrial fibrillation; G89.29 Other chronic pain; I50.9 Heart failure, unspecified; E11.9 Type 2 diabetes mellitus without complications; Z79.01 Long term (current) use of anticoagulants
CPT/HCPCS: 99282

== ENCOUNTER 2018-01-10 18:31 | Inpatient (IN) ==
[2018-01-10] MEDS ORDERED: Morphine Inj 4 MG/ML Vial IV.PUSH ONE (19:59)
--- NOTE | 2018-01-10 20:44 | XR ---
EXAM DATE: 01/10/2018 8:35 PM EDT AGE/SEX: 87 years / Female INDICATIONS: Trauma. Patient fell on right side today. CLINICAL DATA: This is the patient's initial encounter. Patient reports that signs and symptoms have been present for 1 day and indicates a pain score of 5/10. MEDICAL/SURGICAL HISTORY: Congestive heart failure. None. COMPARISON: [facility], CHEST PA & LAT, 06/13/2016. . FINDINGS: A single AP view of the chest demonstrates the lungs to be symmetrically aerated without evidence of mass, infiltrate or effusion. The cardiomediastinal contours are unremarkable. Osseous structures a re intact. CONCLUSION: No acute cardiopulmonary disease demonstrated. Electronically signed by: Donny Lainez MD 01/10/2018 8:43 PM EDT
--- NOTE | 2018-01-10 20:45 | XR ---
EXAM DATE: 01/10/2018 8:37 PM EDT AGE/SEX: 87 years / Female INDICATIONS: Right hip pain after fall today. CLINICAL DATA: This is the patient's initial encounter. Patient reports that signs and symptoms have been present for 1 day and indicates a pain score of 10/10. MEDICAL/SURGICAL HISTORY: Congestive heart failure. None. COMPARISON: No prior exams available for comparison. FINDINGS: There is a comminuted intertrochanteric fracture of the right femur with impaction and medial angulat ion deformity. The head/articular surfaces appear intact. No subluxation. Bony pelvis appears intact and has normal morphology. CONCLUSION: Comminuted intertrochanteric fracture of the right femur. Electronically signed by: Donny Lainez MD 01/10/2018 8:44 PM EDT
--- NOTE | 2018-01-10 20:46 | XR ---
EXAM DATE: 01/10/2018 8:39 PM EDT AGE/SEX: 87 years / Female INDICATIONS: Right hip pain post fall today. CLINICAL DATA: This is the patient's initial encounter. Patient reports that signs and symptoms have been present for 1 day and indicates a pain score of 10/10. MEDICAL/SURGICAL HISTORY: Congestive heart failure. None. COMPARISON: [facility] [place], PELVIS AP 1V, 01/10/2018. . FINDINGS: There is a comminuted intertrochanteric fracture of the right femur. Mild impaction and medial angula tion present. The rest of the right femur is intact. CONCLUSION: Comminuted intertrochanteric fracture of the right femur. Electronically signed by: Donny Lainez MD 01/10/2018 8:45 PM EDT
--- NOTE | 2018-01-10 20:50 | CT ---
EXAM DATE: 01/10/2018 8:46 PM EDT AGE/SEX: 87 years / Female INDICATIONS: Trauma. Fall. CLINICAL DATA: This is the patient's initial encounter. Patient reports that signs and symptoms have been present for 1 day and indicates a pain score of 5/10. MEDICAL/SURGICAL HISTORY: Cardiovascular disease. Hypertension. Hysterectomy. RADIATION DOSE: 54.89 CTDI (mGy) COMPARISON: No prior exams available for comparison. TECHNIQUE: CT of the head without contrast. Using automated exposure control and adjustment of the mA and/or kV according to patient size, radiation dose was kept as low as reasonably achievable to ob tain optimal diagnostic quality images. DICOM format image data is available electronically for revi ew and comparison. FINDINGS: Cerebrum: The ventricles are normal for age. No evidence of midline shift, mass lesion, hemorrhage or acute infarction. Mildly prominent low attenuation bilateral subdural spaces. Posterior Fossa: The cerebellum and brainstem are intact. The 4th ventricle is midline. The cerebe llopontine angle is unremarkable. Extracranial: The visualized portion of the orbits is intact. Skull: The calvaria is intact. No evidence of skull fracture. CONCLUSION: 1. No acute bleed or other acute intracranial abnormality. 2. 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 No associated midline shift or significant mass effect. . Electronically signed by: Donny Lainez MD 01/10/2018 8:49 PM EDT
--- NOTE | 2018-01-10 21:05 | CT ---
EXAM DATE: 01/10/2018 8:50 PM EDT AGE/SEX: 87 years / Female INDICATIONS: Trauma. Fall. CLINICAL DATA: This is the patient's initial encounter. Patient reports that signs and symptoms have been present for 1 day and indicates a pain score of 5/10. MEDICAL/SURGICAL HISTORY: Cerebrovascular disease. Hypertension. Hysterectomy. RADIATION DOSE: 41.34 CTDI (mGy) COMPARISON: No prior exams available for comparison. TECHNIQUE: Contiguous axial images were obtained using helical multirow detector technique. The vol umetric data was post-processed with multiplanar reconstruction in oblique axial, sagittal, and coron al planes. Using automated exposure control and adjustment of the mA and/or kV according to patient s ize, radiation dose was kept as low as reasonably achievable to obtain optimal diagnostic quality mary ges. DICOM format image data is available electronically for review and comparison. FINDINGS: There is no fracture or subluxation of the cervical spine. Moderate uncovertebral and facet osteoarthritis throughout. There is multilevel disc space narrowing, moderate at C3/C4, C5/C6 and C6/C7 and mild at the other levels. Large posterior disc protrusion see n at C4/C5 contributing to mild to moderate short segment spinal stenosis. This is presumably nonacut e. CONCLUSION: 1. Intact cervical spine. 2. Multilevel degenerative changes as above. 3. Large posterior disc protrusion at C4/C5 with [id number] spinal stenosis. Electronically signed by: Donny Lainez MD 01/10/2018 9:03 PM EDT
[2018-01-10 21:22] LABS: Baso % (Auto) 0.3 % (0.0-2.0); Eos % (Auto) 0.3 % (0.0-4.0); Hematocrit 42.1 % (35.0-46.0); Hemoglobin 14.1 gm/dL (11.6-15.3); Lymph # (Auto) 0.5 th/mm3 (1.0-4.8); Lymph % (Auto) 6.5 % (9.0-44.0); Mean Corpuscular HGB Conc 33.5 % (32.0-36.0); Mean Corpuscular Hemoglobin 30.8 pg (27.0-34.0); Mean Corpuscular Volume 91.8 fL (80.0-100.0); Mean Platelet Volume 9.2 fL (7.0-11.0); Mono # (Auto) 0.6 th/mm3 (0.0-0.9); Mono % (Auto) 7.1 % (0.0-8.0); Neut # (Auto) 6.7 th/mm3 (1.8-7.7); Neut % (Auto) 85.8 % (16.0-70.0); Platelet Count 152 th/mm3 (150-450); Red Blood Count 4.58 mil/mm3 (4.00-5.30); White Blood Count 7.8 th/mm3 (4.0-11.0)
[2018-01-10 21:31] LABS: Amorphous Sediment,Urine Occasional /hpf; Bacteria,Urine Many /hpf; Bilirubin,Urine Negative (Negative); Clarity,Urine Hazy (Clear); Color,Urine Yellow (Yellw/Straw); Glucose,Urine (UA) 50 mg/dL (Negative); Leukocyte Esterase,Urine Small (Negative); Mucus,Urine Few /lpf (Occasional); Nitrite,Urine Positive (Negative); Specific Gravity,Urine 1.008 (1.002-1.035); Squamous Epithelial Cell,Urine 1 /hpf (0-5)
[2018-01-10 21:37] LABS: Activated Partial Thrombo Time 37.3 sec (24.3-30.1); INR 3.4 Ratio; Prothrombin Time 34.7 sec (9.8-11.6)
--- NOTE | 2018-01-10 22:27 | ED ---
HPI General Chief Complaint: Fall Stated Complaint: Fall Time Seen by Provider: 01/10/18 19:59 Source: patient and family Mode of arrival: EMS Limitations: no limitations History of Present Illness HPI Narrative: 87-year-old female presents to the emergency department from home for EMS transport for evaluation of injury to right hip status post non- syncopal slip and fall. Patient states she is walker dependent was using her walker and was in the linen closet lost her balance and fell backwards injuring her right hip and hitting the posterior occiput on tile. Patient states she did not have loss of consciousness patient denies headache new neck pain new back pain upper extremity numbness tingling or weakness and lower extremity numbness tingling or weakness but does complain of right hip pain and inability to move the right lower extremity. Fall occurred around 5 PM. Patient took her warfarin at 3 PM as usual. Patient denies any chest pain palpitations shortness of breath abdominal pain nausea vomiting no recent febrile illness or urinary symptoms or complaints or GI symptoms or complaints. No prior history of hip fracture. Patient did take her daily medications as prescribed. Related Data Home Medications Medication Instructions Recorded Confirmed Coumadin 01/10/18 donepezil 10 mg PO DAILY 01/10/18 01/10/18 ezetimibe 10 mg PO DAILY 01/10/18 01/10/18 fluoxetine 10 mg PO DAILY 01/10/18 01/10/18 glimepiride 1 mg PO QAM 01/10/18 01/10/18 lisinopril 10 mg PO DAILY 01/10/18 01/10/18 metoprolol tartrate 50 mg PO BID 01/10/18 01/10/18 oxybutynin chloride 5 mg PO DAILY 01/10/18 01/10/18 Allergies Allergy/AdvReac Type Severity Reaction Status Date / Time Sulfa (Sulfonamide Allergy Unknown Anaphylaxis Verified 01/10/18 18:58 Antibiotics) Review of Systems ROS: all other systems reviewed are negative [facility] Medical History Medical History Atrial fibrillation (Acute) CHF (congestive heart failure) (Acute) Diabetes (Acute) Hx of hysterectomy (Acute) Family History Family History Other CAD (coronary artery disease) Social History Social History Substance History: No History of Abuse Second Hand Smoke Exposure: No Smoking Status: Never smoker How Often Do You Have a Drink Containing Alcohol: Never Recent Travel in [place] within the Last 8 Weeks: No Recent Out of Country Travel within the Last 8 Weeks: No Immunization History Tetanus Immunization: Unsure Hx Influenza Vaccine This Season: Yes Exam Narrative Exam Narrative: GENERAL: Well-nourished, well-developed patient. In no acute distress no respiratory distress SKIN: Focused skin assessment warm/dry. HEAD: Normocephalic. Mild tenderness to palpation posterior occiput no soft tissue swelling no abrasion no laceration no bony abnormality. EYES: No scleral icterus. No injection or drainage. NECK: Supple, trachea midline. No JVD or lymphadenopathy. No midline tenderness to direct palpation along the cervical spine no bony step-off. CARDIOVASCULAR: Regular rate and rhythm without murmurs, gallops, or rubs. Chest wall: Nontender to direct palpation no crepitus no abrasion no ecchymosis RESPIRATORY: Breath sounds equal bilaterally. No accessory muscle use. Lung sounds are clear to auscultation bilaterally. GASTROINTESTINAL: Abdomen soft, non-tender, nondistended. Soft nontender no guarding or rebound nondistended no ecchymosis no abrasion. MUSCULOSKELETAL: No cyanosis, or edema. Patient with obvious right lower extremity deformity and right hip abduction flexion with knee and flexion distally neurovascular tendon intact pain with attempted range of motion of the lower extremity. BACK: Nontender without obvious deformity with patient supine. No CVA tenderness. Course Consultations Consultation #1: Discussed with on-call orthopedic surgeon Dr. Haque recommends 5 pounds Ndiaye's traction and consult to Dr. Rogers for the a.m. Time: 22:46 Initial Documented Vital Signs Temperature 98.0 F 01/10/18 18:48 Pulse Rate 99 H 01/10/18 18:48 Respiratory Rate 18 01/10/18 18:48 Blood Pressure 201/95 H 01/10/18 18:48 Pulse Oximetry 94 L 01/10/18 18:48 Last Documented Vital Signs Temperature 98.0 F 01/10/18 18:54 Pulse Rate 85 01/11/18 04:00 Respiratory Rate 18 01/11/18 04:00 Blood Pressure 150/70 H 01/11/18 04:00 Pulse Oximetry 96 01/11/18 04:00 Medical Decision Making MDM Narrative Medical decision making narrative: 87-year-old female with atrial fibrillation on warfarin therapy status post non-syncopal slip and fall with posterior occiput and contusion secondary to hitting posterior occiput on tile floor and complaint of severe right hip pain. Patient with chronic back pain. Patient denies chest pain rib pain shortness of breath or abdominal pain. No upper extremity pain or injury. Imaging studies ordered basic lab work ordered as well as INR in view of history of atrial fibrillation with warfarin therapy. CT brain noncontrast reveals no acute abnormality; CT cervical spine reveals disc herniation that appears to be chronic no acute bony abnormality chest x- ray no acute abnormality or lobar infiltrate pelvis/right hip/right femur x-ray reveals a comminuted angulated right hip intertrochanteric fracture. Call placed to on-call orthopedist who request patient to be admitted to medicine service with consult to Dr. Rogers kept n.p.o. is aware patient is on warfarin therapy with INR of 3.4 and the imaging shows a comminuted angulated fracture recommend 5 pounds Ndiaye traction. Patient resting comfortably after morphine sulfate 2 mg IV; in view of prolonged INR and hip fracture with fall and CT abdomen and pelvis performed shows no acute spine or pelvis bony abnormality definite comminuted fracture of the right hip with displacement. Patient's case discussed with medicine service for admission with consult orthopedist Dr. Rogers per Dr. Austin's recommendation. Differential Diagnosis Differential Diagnosis: Hip fracture pelvic fracture minor closed head injury skull fracture ICH cervical spine sprain strain fracture disc disease cord compression arrhythmia Coumadin toxicity anemia Medical Records Medical records reviewed: Yes I reviewed the patient's medical records. Lab Data Lab results reviewed: Yes I reviewed the patient's lab results. Result diagrams: 01/10/18 21:00 01/10/18 21:56 Lab Results 01/10/18 01/10/18 01/10/18 Range/Units 21:00 21:00 21:00 WBC 7.8 (4.0-11.0) th/mm3 RBC 4.58 (4.00-5.30) mil/mm3 Hgb 14.1 (11.6-15.3) gm/dL Hct 42.1 (35.0-46.0) % MCV 91.8 (80.0-100.0) fL MCH 30.8 (27.0-34.0) pg MCHC 33.5 (32.0-36.0) % RDW 14.0 (11.6-17.2) % Plt Count 152 (150-450) th/mm3 MPV 9.2 (7.0-11.0) fL Neut % (Auto) 85.8 H (16.0-70.0) % Lymph % (Auto) 6.5 L (9.0-44.0) % [place] % (Auto) 7.1 (0.0-8.0) % Eos % (Auto) 0.3 (0.0-4.0) % Baso % (Auto) 0.3 (0.0-2.0) % Neut # (Auto) 6.7 (1.8-7.7) th/mm3 Lymph # (Auto) 0.5 L (1.0-4.8) th/mm3 [place] # (Auto) 0.6 (0.0-0.9) th/mm3 Eos # (Auto) 0.0 (0.0-0.4) th/mm3 Baso # (Auto) 0.0 (0.0-0.2) th/mm3 WBC Differential . Differential Comment Auto diff final PT 34.7 H (9.8-11.6) sec INR 3.4 Ratio APTT 37.3 H (24.3-30.1) sec Sodium (136-145) meq/L Potassium (3.5-5.1) meq/L Chloride (98-107) meq/L Carbon Dioxide (21.0-32.0) meq/L Anion Gap (5-15) meq/L BUN (7-18) mg/dL Creatinine (0.50-1.00) mg/dL Estimated GFR (>89) mL/min POC Glucose (68-110) mg/dl Random Glucose (74-106) mg/dL Calcium (8.5-10.1) mg/dL Total Bilirubin (0.2-1.0) mg/dL AST (15-37) U/L ALT (10-53) U/L Alkaline Phosphatase (45-117) U/L Total Protein (6.4-8.2) g/dL Albumin (3.4-5.0) g/dL Urine Color (Yellw/Straw) Urine Clarity (Clear) Urine pH (5.0-8.5) Ur Specific [place] (1.002-1.035) Urine Protein (Neg-Trace) mg/dL Urine Glucose (UA) (Negative) mg/dL Urine Ketones (Negative) mg/dL Urine Occult Blood (Negative) Urine Nitrate (Negative) Urine Bilirubin (Negative) Urine Urobilinogen (Less than 2) mg/dL Ur Leukocyte Esterase (Negative) Urine RBC (0-3) /hpf Urine WBC (0-5) /hpf Ur Squamous Epith Cells (0-5) /hpf Amorphous Sediment (None) /hpf Urine Bacteria (None) /hpf Urine Mucus (Occasional) /lpf Micro UA Comment Urine Culture Comments Blood Type A Positive Antibody Screen Negative 01/10/18 01/10/18 01/11/18 Range/Units 21:00 21:56 04:02 WBC (4.0-11.0) th/mm3 RBC (4.00-5.30) mil/mm3 Hgb (11.6-15.3) gm/dL Hct (35.0-46.0) % MCV (80.0-100.0) fL MCH (27.0-34.0) pg MCHC (32.0-36.0) % RDW (11.6-17.2) % Plt Count (150-450) th/mm3 MPV (7.0-11.0) fL Neut % (Auto) (16.0-70.0) % Lymph % (Auto) (9.0-44.0) % [place] % (Auto) (0.0-8.0) % Eos % (Auto) (0.0-4.0) % Baso % (Auto) (0.0-2.0) % Neut # (Auto) (1.8-7.7) th/mm3 Lymph # (Auto) (1.0-4.8) th/mm3 [place] # (Auto) (0.0-0.9) th/mm3 Eos # (Auto) (0.0-0.4) th/mm3 Baso # (Auto) (0.0-0.2) th/mm3 WBC Differential Differential Comment PT (9.8-11.6) sec INR Ratio APTT (24.3-30.1) sec Sodium 136 (136-145) meq/L Potassium 4.9 (3.5-5.1) meq/L Chloride 101 (98-107) meq/L Carbon Dioxide 24.7 (21.0-32.0) meq/L Anion Gap 10 (5-15) meq/L BUN 15 (7-18) mg/dL Creatinine 0.78 (0.50-1.00) mg/dL Estimated GFR 70 L (>89) mL/min POC Glucose 168 H (68-110) mg/dl Random Glucose 152 H (74-106) mg/dL Calcium 8.7 (8.5-10.1) mg/dL Total Bilirubin 1.3 H (0.2-1.0) mg/dL AST 25 (15-37) U/L ALT 17 (10-53) U/L Alkaline Phosphatase 89 (45-117) U/L Total Protein 6.3 L (6.4-8.2) g/dL Albumin 2.9 L (3.4-5.0) g/dL Urine Color Yellow (Yellw/Straw) Urine Clarity Hazy H (Clear) Urine pH 5.0 (5.0-8.5) Ur Specific [place] 1.008 (1.002-1.035) Urine Protein Negative (Neg-Trace) mg/dL Urine Glucose (UA) 50 (Negative) mg/dL Urine Ketones Trace H (Negative) mg/dL Urine Occult Blood Small H (Negative) Urine Nitrate Positive H (Negative) Urine Bilirubin Negative (Negative) Urine Urobilinogen Less than 2 (Less than 2) mg/dL Ur Leukocyte Esterase Small H (Negative) Urine RBC 1 (0-3) /hpf Urine WBC 8 H (0-5) /hpf Ur Squamous Epith Cells 1 (0-5) /hpf Amorphous Sediment Occasional H (None) /hpf Urine Bacteria Many H (None) /hpf Urine Mucus Few H (Occasional) /lpf Micro UA Comment Culture indicated Urine Culture Comments Culture indicated Blood Type Antibody Screen Imaging Data Radiologist's impression: Head CT 01/10/18 19:59 CONCLUSION: 1. No acute bleed or other acute intracranial abnormality. 2. 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 No associated midline shift or significant mass effect. . Chest X-Ray 01/10/18 20:00 CONCLUSION: No acute cardiopulmonary disease demonstrated. Pelvis X-Ray 01/10/18 20:00 CONCLUSION: Comminuted intertrochanteric fracture of the right femur. Femur X-Ray 01/10/18 20:01 CONCLUSION: Comminuted intertrochanteric fracture of the right femur. Cervical Spine CT 01/10/18 20:02 CONCLUSION: 1. Intact cervical spine. 2. Multilevel degenerative changes as above. 3. Large posterior disc protrusion at C4/C5 with [id number] spinal stenosis. Abdomen/Pelvis CT 01/10/18 22:41 CONCLUSION: 1. Comminuted and displaced right proximal femur fracture. 2. Severe diverticulosis. 3. Atherosclerosis. 4. Hepatic cyst, and hypodense proximal pancreatic mass likely represents a cyst. Outpatient MRI/MRCP or dedicated pancreatic CT recommended for further characterization. 5. Cholelithiasis. ECG Data EKG Prior to Arrival: No Attestation: I personally reviewed and interpreted this ECG as follows: Prior ECG tracings: not available for review Interpretation: EKG: Atrial fibrillation with RVR rate 106 07/07/[address] elevation nonspecific ST segment depression Discharge Plan Discharge Disposition Patient Disposition: 30 Still Patient Discharge Condition Condition: Stable Discharge Details Diagnosis: Closed comminuted fracture of hip, Atrial fibrillation, On warfarin therapy Physicians Team ED Provider: Hellen Madrid Primary Care Provider: Aditya Galeana Attending Provider: Phyllis Yost Other Providers: Allen Haque Discharge Interventions Interventions: Vital Signs Last Done: 01/11/18 01:00 Status ED Status: Admitted Patient
[2018-01-10] MEDS ORDERED: Sodium Chlor 0.9% Inj 500 ML IV.SIG ONE (22:30)
[2018-01-10 22:35] LABS: Alanine Aminotransferase 17 U/L (10-53)
[2018-01-10 22:37] LABS: Albumin 2.9 g/dL (3.4-5.0); Alkaline Phosphatase 89 U/L (45-117); Anion Gap 10 meq/L (5-15); Aspartate Aminotransferase 25 U/L (15-37); Blood Urea Nitrogen 15 mg/dL (7-18); Calcium 8.7 mg/dL (8.5-10.1); Carbon Dioxide 24.7 meq/L (21.0-32.0); Chloride 101 meq/L (98-107); Glomerular Filtration Rate 70 mL/min (>89); Glucose,Random 152 mg/dL (74-106); Potassium 4.9 meq/L (3.5-5.1); Sodium 136 meq/L (136-145); Total Protein 6.3 g/dL (6.4-8.2)
--- NOTE | 2018-01-10 23:36 | CT ---
EXAM DATE: 01/10/2018 11:29 PM EDT AGE/SEX: 87 years / Female INDICATIONS: Fall. Right flank pain. CLINICAL DATA: This is the patient's initial encounter. Patient reports that signs and symptoms have been present for 1 day and indicates a pain score of 8/10. MEDICAL/SURGICAL HISTORY: Cardiovascular disease. Diabetes mellitus type II. Hysterectomy. ORAL CONTRAST: No oral contrast ingested. RADIATION DOSE: 13.01 CTDI (mGy) COMPARISON: [facility], FEMUR RIGHT 2V, 01/10/2018. . TECHNIQUE: Multiple contiguous axial images were obtained through the abdomen and pelvis following b olus infusion of 95 ml Omnipaque 350 (iohexol) nonionic water-soluble contrast as a single exam dos e. No oral contrast ingested. Using automated exposure control and adjustment of the mA and/or kV ac cording to patient size, radiation dose was kept as low as reasonably achievable to obtain optimal di agnostic quality images. DICOM format image data is available electronically for review and comparis on. FINDINGS: There is cardiomegaly. Numerous calcified gallstones are present within the gallbladder. The liver, s pleen, left kidney are unremarkable. 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 Fol ey catheter is noted within the urinary bladder as well as a pessary in the vagina. There is a small amount of air in the urinary bladder. There is severe diverticulosis of the sigmoid colon and descend ing colon, without evidence of diverticulitis. Transverse and descending colonic diverticuli are also noted. Patient is status post hysterectomy. No adnexal masses. Atherosclerotic calcification of the aorta and iliac vessels are noted. There is a cyst present in the lateral segment of the left lobe of the liver measuring 3.4 cm. There is a 3.3 x 1.9 cm hypodense proximal pancreatic mass seen likely a cyst. There is no aneurysm. There is a heavily comminuted fracture of the right proximal femur at th e trochanteric level. CONCLUSION: 1. Comminuted and displaced right proximal femur fracture. 2. Severe diverticulosis. 3. Atherosclerosis. 4. Hepatic cyst, and hypodense proximal pancreatic mass likely represents a cyst. Outpatient MRI/MRC P or dedicated pancreatic CT recommended for further characterization. 5. Cholelithiasis. Electronically signed by: Carroll Morrison MD 01/10/2018 11:35 PM EDT
[2018-01-11] MEDS ORDERED: Morphine Inj 4 MG/ML Vial IV.PUSH ONE (00:08)
[2018-01-11] MEDS ORDERED: Dextrose 50% in Water 50 ML Vial IV.PUSH PRN (01:38)
[2018-01-11] MEDS ORDERED: Acetaminophen 325 MG Tablet PO PRN (01:40)
[2018-01-11] MEDS ORDERED: Temazepam 15 MG Capsule PO PRN (01:40)
[2018-01-11] MEDS ORDERED: Bisacodyl 10 MG Supp RECTAL PRN (01:40)
[2018-01-11] MEDS: Insulin NovoLOG Aspart Correctional Sugar Inj SQ SCH ×5 (04:05→21:56)
[2018-01-11] MEDS: Sod Chloride 0.9% Inj 1,000 ML IV.CONT SCH ×2 (04:10→12:11)
--- NOTE | 2018-01-11 04:57 | P.HP ---
History of Present Illness Primary Care Physician: Aditya Galeana MD History of Present Illness: 87-year-old female with a past medical history significant for atrial fibrillation anticoagulated on Coumadin, CHF and diabetes mellitus since the emergency department for evaluation of a fall. The patient reports that she is dependent upon her walker for ambulation and was in the linen closet when she fell backwards injuring her right hip on the tile floor. She denies any head trauma or LOC. Inpatient Certification: I certify that the inpatient services were ordered in accordance with Medicare regulations governing the order. This includes certification that hospital inpatient services are reasonable and necessary and in the case of services not specified as inpatient-only under 42 CFR 419.22(n), that they are appropriately provided as inpatient services in accordance to with the 2-midnight benchmark under 43 CFR 412.3(e) Estimated Total Length of Stay (Days): 3 Plans for Post Hospital Care: Not yet determined Review of Systems Denies fever or chills Denies blurry vision, otorrhea, rhinorrhea Denies sore throat and cough No chest pain, palpitations No shortness of breath or wheezing No abdominal pain Denies constipation/diarrhea/nausea/vomiting No rashes PMFSH - History History Provided By: Patient - Medical History Medical History: Medical History (Last Updated 01/10/18 @ 18:56 by Ernie Ponce) Atrial fibrillation CHF (congestive heart failure) Diabetes Hx of hysterectomy - Family History Family History: Family History (Last Updated 01/11/18 @ 04:53 by Chula Clarke MD) Other CAD (coronary artery disease) - Tobacco History Second Hand Smoke Exposure: No Tobacco Use In Past 30 Days: No Smoking Status: Never smoker - Alcohol History How Often Do You Have a Drink Containing Alcohol: Never - Substance Use History Substance History: No History of Abuse - Travel History Recent Travel in the [place] Within the Last 8 Weeks: No Recent Travel Out of the Country Within the Last 8 Weeks: No - Immunization History Tetanus Immunization: Unsure Hx Influenza Vaccine This Season: Yes Medications and Allergies Active Medications: Active Medications Acetaminophen (Tylenol) 650 mg PO Q4H PRN PRN Reason: Temp > 100.4 Al Hydroxide/Mg Hydroxide (Milk Of Magnesia Liq) 30 ml PO Q12H PRN PRN Reason: Mild Constipation Bisacodyl (Dulcolax Supp) 10 mg RECTAL DAILY PRN PRN Reason: SEVERE CONSITIPATION Dextrose (D50w Vial) 50 ml IV.PUSH UNSCH PRN PRN Reason: PER HYPOGLYCEMIA PROTOCOL Donepezil HCl (Aricept) 10 mg PO DAILY [facility] Ezetimibe (Zetia) 10 mg PO DAILY [facility] Fluoxetine HCl (Prozac) 10 mg PO DAILY [facility] Glucagon (Glucagon Inj) 1 mg OTHER PRN PRN PRN Reason: for Hypoglycemia Protocol Sodium Chloride (Ns Inj) 1,000 mls @ 100 mls/hr IV.CONT .Q10H [facility] Last Admin: 01/11/18 04:10 Dose: 100 mls/hr Insulin Aspart (Novolog Insulin Correctional Sugar Inj) 0 unit SQ ACHS AND 3AM [facility]; Protocol Last Admin: 01/11/18 04:05 Dose: Not Given Lactulose (Lactulose Liq) 30 ml PO DAILY PRN PRN Reason: SEVERE CONSITIPATION Lisinopril (Prinivil) 10 mg PO DAILY [facility] Metoprolol Tartrate (Lopressor) 50 mg PO BID [facility] Morphine Sulfate (Morphine Inj) 4 mg IV.PUSH Q4H PRN PRN Reason: pain 6-10 Ondansetron HCl (Zofran Inj) 4 mg IV.PUSH Q6H PRN PRN Reason: NAUSEA OR VOMITING Oxybutynin Chloride (Ditropan Xl) 5 mg PO DAILY [facility] Senna/Docusate Sodium (Teresa-Colace) 1 tab PO BID [facility] Sennosides (Senokot) 17.2 mg PO Q12H PRN PRN Reason: Moderate Constipation Sodium Chloride (Ns Flush) 2 ml IV.FLUSH UNSCH PRN PRN Reason: FLUSH AFTER USING IV ACCESS Last Admin: 01/10/18 21:02 Dose: 2 ml Temazepam (Restoril) 15 mg PO HS PRN PRN Reason: INSOMNIA Allergies Allergy/AdvReac Type Severity Reaction Status Date / Time Sulfa (Sulfonamide Allergy Unknown Anaphylaxis Verified 01/10/18 18:58 Antibiotics) Home Medications Medication Instructions Recorded Confirmed Type Coumadin 01/10/18 History donepezil 10 mg PO DAILY 01/10/18 01/10/18 History ezetimibe 10 mg PO DAILY 01/10/18 01/10/18 History fluoxetine 10 mg PO DAILY 08/07/18 08/07/18 History glimepiride 1 mg PO QAM 01/10/18 01/10/18 History lisinopril 10 mg PO DAILY 01/10/18 01/10/18 History metoprolol tartrate 50 mg PO BID 01/10/18 01/10/18 History oxybutynin chloride 5 mg PO DAILY 01/10/18 01/10/18 History Exam Vital signs: Vital Signs 01/10/18 18:48 01/10/18 18:54 01/10/18 21:34 Temperature 98.0 F 98.0 F Pulse Rate 99 H 98 H 105 H Respiratory Rate 18 Blood Pressure 201/95 H 201/95 H 125/84 Pulse Oximetry 94 L 94 L 95 01/11/18 01:00 01/11/18 02:13 01/11/18 04:00 Temperature Pulse Rate 81 88 85 Respiratory Rate 18 18 Blood Pressure 142/63 H 155/67 H 150/70 H Pulse Oximetry 96 Intake & Output 01/10/18 01/10/18 01/11/18 06:59 18:59 06:59 Weight 77.111 kg Narrative: Gen.: No acute distress Head: Normocephalic. Atraumatic. EENT: Pupils equal round and reactive to light. Nose without drainage. Airway intact. Throat without injection. Cardiovascular: Regular rate and rhythm. No murmurs, rubs or gallops. Respiratory: Lungs clear to auscultation bilaterally. No wheezes or rhonchi. Abdomen: Soft, nontender, nondistended. No peritoneal signs. Musculoskeletal: Right hip externally rotated and bent at the knee. Neurovascularly intact. Skin: No obvious rashes or erythema. Neuro: Sensory and motor grossly intact. Cranial nerves II through XII grossly intact. Results - Labs CBC & Chem 7: 01/10/18 21:00 01/10/18 21:56 Labs: Laboratory Results - last 24 hr 01/10/18 01/10/18 01/10/18 21:00 21:00 21:00 WBC 7.8 RBC 4.58 Hgb 14.1 Hct 42.1 MCV 91.8 MCH 30.8 MCHC 33.5 RDW 14.0 Plt Count 152 MPV 9.2 Neut % (Auto) 85.8 H Lymph % (Auto) 6.5 L Pratt % (Auto) 7.1 Eos % (Auto) 0.3 Baso % (Auto) 0.3 Neut # (Auto) 6.7 Lymph # (Auto) 0.5 L Pratt # (Auto) 0.6 Eos # (Auto) 0.0 Baso # (Auto) 0.0 WBC Differential . Differential Comment Auto diff final PT 34.7 H INR 3.4 APTT 37.3 H Sodium Potassium Chloride Carbon Dioxide Anion Gap BUN Creatinine Estimated GFR POC Glucose Random Glucose Calcium Total Bilirubin AST ALT Alkaline Phosphatase Total Protein Albumin Urine Color Urine Clarity Urine pH Ur Specific [place] Urine Protein Urine Glucose (UA) Urine Ketones Urine Occult Blood Urine Nitrate Urine Bilirubin Urine Urobilinogen Ur Leukocyte Esterase Urine RBC Urine WBC Ur Squamous Epith Cells Amorphous Sediment Urine Bacteria Urine Mucus Micro UA Comment Urine Culture Comments Blood Type A Positive Antibody Screen Negative 01/10/18 01/10/18 01/11/18 21:00 21:56 04:02 WBC RBC Hgb Hct MCV MCH MCHC RDW Plt Count MPV Neut % (Auto) Lymph % (Auto) Pratt % (Auto) Eos % (Auto) Baso % (Auto) Neut # (Auto) Lymph # (Auto) Pratt # (Auto) Eos # (Auto) Baso # (Auto) WBC Differential Differential Comment PT INR APTT Sodium 136 Potassium 4.9 Chloride 101 Carbon Dioxide 24.7 Anion Gap 10 BUN 15 Creatinine 0.78 Estimated GFR 70 L POC Glucose 168 H Random Glucose 152 H Calcium 8.7 Total Bilirubin 1.3 H AST 25 ALT 17 Alkaline Phosphatase 89 Total Protein 6.3 L Albumin 2.9 L Urine Color Yellow Urine Clarity Hazy H Urine pH 5.0 Ur Specific [place] 1.008 Urine Protein Negative Urine Glucose (UA) 50 Urine Ketones Trace H Urine Occult Blood Small H Urine Nitrate Positive H Urine Bilirubin Negative Urine Urobilinogen Less than 2 Ur Leukocyte Esterase Small H Urine RBC 1 Urine WBC 8 H Ur Squamous Epith Cells 1 Amorphous Sediment Occasional H Urine Bacteria Many H Urine Mucus Few H Micro UA Comment Culture indicated Urine Culture Comments Culture indicated Blood Type Antibody Screen - Imaging Impressions Head CT 01/10/18 19:59 CONCLUSION: 1. No acute bleed or other acute intracranial abnormality. 2. 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 No associated midline shift or significant mass effect. . Chest X-Ray 01/10/18 20:00 CONCLUSION: No acute cardiopulmonary disease demonstrated. Pelvis X-Ray 01/10/18 20:00 CONCLUSION: Comminuted intertrochanteric fracture of the right femur. Femur X-Ray 01/10/18 20:01 CONCLUSION: Comminuted intertrochanteric fracture of the right femur. Cervical Spine CT 01/10/18 20:02 CONCLUSION: 1. Intact cervical spine. 2. Multilevel degenerative changes as above. 3. Large posterior disc protrusion at C4/C5 with [id number] spinal stenosis. Abdomen/Pelvis CT 01/10/18 22:41 CONCLUSION: 1. Comminuted and displaced right proximal femur fracture. 2. Severe diverticulosis. 3. Atherosclerosis. 4. Hepatic cyst, and hypodense proximal pancreatic mass likely represents a cyst. Outpatient MRI/MRCP or dedicated pancreatic CT recommended for further characterization. 5. Cholelithiasis. Caprini VTE Risk Assessment Caprini VTE Risk Assessment: Moderate/High Risk (score >= 2) Caprini Risk Assessment Model: Point Value = 1 Point Value = 2 Point Value = 3 Point Value = 5 Age 41-60 Minor surgery BMI > 25 kg/m2 Swollen legs Varicose veins or History of unexplained or recurrent spontaneous Oral contraceptives or hormone replacement Sepsis (< 1 month) Serious lung disease, including pneumonia (< 1 month) Abnormal pulmonary function Acute myocardial infarction Congestive heart failure (< 1 month) History of inflammatory bowel disease Medical patient at bed rest Age 61-74 Arthroscopic surgery Major open surgery (> 45 min) Laparoscopic surgery (> 45 min) Malignancy Confined to bed (> 72 hours) Immobilizing plaster cast Central venous access Age >= 75 History of VTE Family history of VTE Factor V Leiden Prothrombin [id number] Lupus anticoagulant Anticardiolipin antibodies Elevated serum homocysteine Heparin-induced thrombocytopenia Other congenital or acquired thrombophilia Stroke (< 1 month) Elective arthroplasty Hip, pelvis, or leg fracture Acute spinal cord injury (< 1 month) Prophylaxis Regimen: Total Risk Factor Score Risk Level Prophylaxis Regimen 0-1 Low Early ambulation 2 Moderate Order ONE of the following: *Sequential Compression Device (SCD) *Heparin 5000 units SQ BID 3-4 Higher Order ONE of the following medications: *Heparin 5000 units SQ TID *Enoxaparin/Lovenox 40 mg SQ daily (WT < 150 kg, CrCl > 30 mL/min) *Enoxaparin/Lovenox 30 mg SQ daily (WT < 150 kg, CrCl > 10-29 mL/min) *Enoxaparin/Lovenox 30 mg SQ BID (WT < 150 kg, CrCl > 30 mL/min) AND/OR *Sequential Compression Device (SCD) 5 or more Highest Order ONE of the following medications: *Heparin 5000 units SQ TID (Preferred with Epidurals) *Enoxaparin/Lovenox 40 mg SQ daily (WT < 150 kg, CrCl > 30 mL/min) *Enoxaparin/Lovenox 30 mg SQ daily (WT < 150 kg, CrCl > 10-29 mL/min) *Enoxaparin/Lovenox 30 mg SQ BID (WT < 150 kg, CrCl > 30 mL/min) AND *Sequential Compression Device (SCD) Assessment and Plan - Plan Assessment/plan: 1. Right hip fracture Pelvic x-ray significant for comminuted intertrochanteric fracture of the right femur Orthopedic surgery consulted, appreciate recommendations 2. Atrial fibrillation anticoagulated on Coumadin INR 2.4 Continue home medications Holding Coumadin in anticipation of surgery later today 3. CHF Gentle IV fluid hydration as patient n.p.o. Continue home medications 4. Diabetes mellitus Sliding-scale insulin Monitor blood glucose FEN N.p.o. Electrolytes: Monitor as needed NS at 50 cc/hour Holding pharmacologic anticoagulation in anticipation of operative intervention
[2018-01-11] MEDS ORDERED: Sodium Chlor 0.9% Inj 250 ML IV.SIG SCH (08:00)
--- NOTE | 2018-01-11 08:23 | XR ---
EXAM DATE: 01/11/2018 8:15 AM EDT AGE/SEX: 87 years / Female INDICATIONS: Left knee pain after fall. CLINICAL DATA: This is the patient's initial encounter. Patient reports that signs and symptoms have been present for 2 days and indicates a pain score of 8/10. MEDICAL/SURGICAL HISTORY: None. None. COMPARISON: [facility], TIBIA/FIBULA LEFT (AP/LAT), 06/06/2016. . FINDINGS: There is diffuse osseous demineralization but no acute fracture post fall. Severe tricompartment oste oarthritic changes but no significant effusion CONCLUSION: 1. Severe tricompartment osteoarthritic changes. Diffuse osseous demineralization. 2. No acute fracture or effusion. Electronically signed by: Chu Prince MD 01/11/2018 8:21 AM EDT
[2018-01-11] MEDS: Metoprolol Tartrate 50 MG Tablet PO SCH ×2 (08:36→21:55)
[2018-01-11] MEDS: Ezetimibe 10 MG Tablet PO SCH (08:36)
[2018-01-11] MEDS: FLUoxetine 10 MG Capsule PO SCH (08:36)
[2018-01-11] MEDS: Senna/Docusate Sodium 8.6/50 MG Tablet PO SCH ×2 (08:36→21:56)
[2018-01-11] MEDS: Lisinopril 10 MG Tablet PO SCH (08:36)
[2018-01-11 10:01] LABS: INR 3.2 Ratio
--- NOTE | 2018-01-11 11:03 | MB ---
cc: Duane Rogers MD DATE: 01/11/2018 REASON FOR CONSULTATION: Right hip intertrochanteric fracture. HISTORY OF PRESENT ILLNESS: Delores is an 87-year-old female. She has multiple medical problems including atrial fibrillation, CHF, and diabetes. She had a fall at home. [facility], when she turned around. She describes a mechanical fall. She lost her balance. She landed on her right side. She had immediate right hip pain. She was unable to stand or ambulate. She presented to the Emergency Room where x-rays revealed a comminuted right hip intertrochanteric fracture. She is currently awake and alert. Pain is worse with movement and is improved with rest. PAST MEDICAL HISTORY: Atrial fibrillation, CHF, diabetes. PAST SURGICAL HISTORY: Hysterectomy. ALLERGIES: SULFA. HOME MEDICATIONS: Include: 1. Coumadin. 2. Benazepril. 3. Fluoxetine 4. Glimepiride. 5. Lisinopril. 6. Metoprolol. 7. Oxybutynin. SOCIAL HISTORY: The patient denies alcohol, tobacco or drug use. She lives at home. FAMILY HISTORY: Positive for coronary artery disease in her parents. REVIEW OF SYSTEMS: The patient denies fevers, chills, weight loss, headache, visual changes, hearing loss, chest pain, palpitations, shortness of breath, nausea, vomiting, urinary changes, diarrhea, bowel changes, neck pain, back pain, skin rashes, weakness, numbness of extremities, anxiety or depression. She complains of right hip pain. She also has some mild left knee pain. The pain is worse with movement. LABORATORY DATA: The patient has a white blood cell count of 7.8, hematocrit of 42.1, and platelet count of 152. INR is 3.4. Potassium is 4.9. X-RAY STUDIES: X-rays and CT scan of the right hip are reviewed. X-rays reveal a comminuted displaced intertrochanteric hip fracture. PHYSICAL EXAMINATION: GENERAL: The patient is a well-developed, well-nourished 87-year-old female. She is awake and alert. She is in no acute distress. She appears well-developed and well-nourished. VITAL SIGNS: Temperature 97.7, pulse 79, respirations 18, blood pressure 158/70, O2 saturation is 94% on room air. HEENT: Head: The patient is normocephalic. Pupils are equal. NECK: Soft, nontender. The trachea is in the midline. ABDOMEN: Soft, nontender, and nondistended. EXTREMITIES: Examination of bilateral upper extremities reveals no pain with shoulder, elbow or wrist motion. She has intact sensation in all fingers. She has good capillary refill in all fingers. Skin is intact to both hands. Examination of the left leg reveals no significant pain with hip or ankle motion. She has mild tenderness around her knee. There is mild crepitus with knee range of motion. Skin is intact. Sensation is intact to the left foot. Examination of the right leg reveals pain with any hip motion. The right leg is shortened and externally rotated. She has minimal tenderness around her knee, tibia or ankle. Skin is intact. Dorsalis pedis pulse is palpable. Sensation is intact. IMPRESSION: 1. Atrial fibrillation. 2. Anticoagulation with Coumadin. 3. Osteoporosis. 4. Right hip intertrochanteric fracture. 5. Diabetes. PLAN: Treatment options were discussed with the patient. At this point, the patient's INR will need to be corrected. I will order fresh frozen plasma and vitamin K. I will plan on surgery tomorrow if her INR is corrected. Risks and benefits of surgery will be discussed in depth with the patient to include bleeding, infection, injuries to arteries, nerves or blood vessels; nonunion, malunion, painful hardware, avascular necrosis, need for hip replacement, as well as medical complications including blood clot, stroke, heart attack and . All questions were answered. I will plan on surgery tomorrow if she is medically cleared. Postoperatively, the patient will be started on calcium and vitamin D supplementations. Physical therapy will be consulted. She will be started back on her Coumadin postoperatively. All questions were answered. A mid-level provider in my office, nurse practitioner or PA, may see this patient on a follow-up basis and continue to implement the objective of this plan including: Starting or adjusting medications, injections of muscle, tendon, bursa or joints, cast application, orthotic or brace application, physical therapy, further radiographic studies including x-ray, MRI, CT, ultrasounds or bone scan, vascular studies, neurologic studies, or other specialist consultations, and proceeding with surgical management as appropriate. Duane MD [facility] , 10:40 AM , 10:50 AM
[2018-01-11] MEDS: Morphine Inj 4 MG/ML Vial IV.PUSH PRN ×2 (12:09→18:33)
--- NOTE | 2018-01-11 22:26 | ECG ---
Date Performed: 01/10/2018 Time Performed: 21:01:40 PTAGE: 87 years EKG: ATRIAL FIBRILLATION WITH RAPID VENTRICULAR RESPONSE MODERATE ST DEPRESSION ABNORMAL ECG PREVIOUS TRACING : 06/13/2016 18.00 Since the previous tracing, no significant change noted DOCTOR: Ney Nagy Interpretating Date/Time 01/11/2018 22:25:07
[2018-01-12] MEDS ORDERED: Chlorhexidine Gluconate 2% 1 Pack (2 Cloths) TOPICAL SCH (02:00)
[2018-01-12] MEDS ORDERED: Sodium Chlor 0.9% Inj 500 ML IV.SIG SCH (02:00)
[2018-01-12] MEDS: Insulin NovoLOG Aspart Correctional Sugar Inj SQ SCH ×5 (04:03→21:40)
--- NOTE | 2018-01-12 07:07 | P.PNOP ---
Subjective Interval history: s/p right intertroch hip fx surgery cancelled yesterday due to INR of 3.2 multiple orders have been placed for redraw but lab has failed to obtain. Physical Exam Vital signs: Vital Signs 01/11/18 07:32 01/11/18 07:51 01/11/18 09:30 Temperature 98.6 F 97.7 F Pulse Rate 90 92 H 79 Respiratory Rate 14 16 18 Blood Pressure 170/69 H 170/96 H 158/70 H Pulse Oximetry 97 96 94 L 01/11/18 09:44 01/11/18 09:49 01/11/18 09:54 Temperature 98.9 F 98.9 F 98.9 F Pulse Rate 87 84 88 Respiratory Rate 18 18 18 Blood Pressure 180/70 H 167/70 H 181/74 H Pulse Oximetry 95 96 96 01/11/18 10:00 01/11/18 10:15 01/11/18 11:10 Temperature 98.8 F 98.9 F Pulse Rate 87 86 87 Respiratory Rate 18 18 18 Blood Pressure 171/74 H 165/71 H 158/68 H Pulse Oximetry 96 96 01/11/18 11:17 01/11/18 11:23 01/11/18 11:27 Temperature 98.9 F 98.5 F 99 F Pulse Rate 85 85 92 H Respiratory Rate 16 16 18 Blood Pressure 162/68 H 145/65 H 159/69 H Pulse Oximetry 96 98 97 01/11/18 11:43 01/11/18 12:03 01/11/18 12:15 Temperature 98.6 F 98.9 F Pulse Rate 98 H 89 81 Respiratory Rate 18 18 18 Blood Pressure 157/70 H 152/66 H 158/71 H Pulse Oximetry 96 96 97 01/11/18 12:18 01/11/18 12:45 01/11/18 13:00 Temperature 98.9 F Pulse Rate 86 85 86 Respiratory Rate 18 18 18 Blood Pressure 149/72 H 159/75 H 135/78 Pulse Oximetry 100 97 97 01/11/18 20:00 01/11/18 20:08 01/12/18 00:00 Temperature 97.8 F 98.1 F Pulse Rate 91 H 96 H 88 Respiratory Rate 18 18 Blood Pressure 137/61 148/65 H Pulse Oximetry 97 97 01/12/18 00:04 01/12/18 04:00 Temperature 98.4 F Pulse Rate 89 79 Respiratory Rate 18 Blood Pressure 158/67 H Pulse Oximetry 95 Intake & Output 01/11/18 01/12/18 01/12/18 18:59 06:59 18:59 Intake Total 1898 / 1898 Output Total 900 / 900 475 / 475 Balance 998 / 998 -475 / -475 Weight 77.2 kg Intake: IV 951 / 951 NS Inj 1,000 ML @ 50 mls/hr IV. 900 / 900 CONT .Q20H [facility]EN Rx#:[id number] Vitamin K Inj 10 MG In D5W Inj 51 / 51 50 ML @ 102 mls/hr IV.SIG ONCE ONE Rx#:[id number] Oral 360 / 360 Intake (Blood Product) Amt 587 / 587 Plasma Thawed 5 Day Cp2d Unit 366 / 366 [id number] Plasma Thawed 5d Cp2d Pool 221 / 221 Unit [id number] Output: Urine 475 / 475 Urine Amount (Catheter) 900 / 900 Indwelling Urethral Catheter 900 / 900 Narrative: RLE: +traction. nvi - Urinary Catheter Management Indwelling Urethral Catheter Cath placed during this visit: no Results - Labs CBC & Chem 7: 01/10/18 21:00 01/10/18 21:56 Laboratory Results - last 24 hr 01/11/18 01/11/18 01/11/18 07:21 07:44 08:35 PT 32.0 H INR 3.2 APTT POC Glucose 134 H Blood Bank Comment 01/11/18 01/11/18 01/11/18 09:32 12:00 21:53 PT INR APTT 42.0 H POC Glucose 147 H 151 H Blood Bank Comment 01/12/18 01/12/18 04:01 07:02 PT INR APTT POC Glucose 139 H 171 H Blood Bank Comment Microbiology 01/10/18 21:00 Clean Catch Urine Urine Culture - Preliminary No growth in 24 hours - Imaging Impressions Knee X-Ray 01/11/18 00:00 CONCLUSION: 1. Severe tricompartment osteoarthritic changes. Diffuse osseous demineralization. 2. No acute fracture or effusion. Assessment and Plan - Assessment and Plan 1) Right Intertroch Hip Fx -FFP and Vit K given yesterday -order for repeat INR at 6pm was never completed -redraw happening now -will await pending INR for possible surgery today
[2018-01-12 07:45] LABS: Baso % (Auto) 0.1 % (0.0-2.0); Eos % (Auto) 0.1 % (0.0-4.0); Hematocrit 36.7 % (35.0-46.0); Hemoglobin 12.4 gm/dL (11.6-15.3); Lymph # (Auto) 0.6 th/mm3 (1.0-4.8); Lymph % (Auto) 8.3 % (9.0-44.0); Mean Corpuscular HGB Conc 33.6 % (32.0-36.0); Mean Corpuscular Hemoglobin 31.2 pg (27.0-34.0); Mean Corpuscular Volume 92.9 fL (80.0-100.0); Mean Platelet Volume 8.7 fL (7.0-11.0); Mono # (Auto) 0.9 th/mm3 (0.0-0.9); Mono % (Auto) 12.6 % (0.0-8.0); Neut # (Auto) 5.6 th/mm3 (1.8-7.7); Neut % (Auto) 78.9 % (16.0-70.0); Platelet Count 124 th/mm3 (150-450); Red Blood Count 3.95 mil/mm3 (4.00-5.30); Red Cell Distribution Width 14.2 % (11.6-17.2); White Blood Count 7.1 th/mm3 (4.0-11.0)
[2018-01-12 07:50] LABS: INR 1.1 Ratio; Prothrombin Time 10.7 sec (9.8-11.6)
[2018-01-12] MEDS ORDERED: Bupivacaine/Epinephrine Inj 0.25% 50 ML Vial ONE (08:03)
[2018-01-12] MEDS: Metoprolol Tartrate 50 MG Tablet PO SCH ×2 (08:12→21:26)
[2018-01-12 08:30] LABS: Calcium 8.4 mg/dL (8.5-10.1); Carbon Dioxide 27.1 meq/L (21.0-32.0); Potassium 4.1 meq/L (3.5-5.1)
[2018-01-12] MEDS ORDERED: Post-op Orders (for Pharmacy) OTHER STA (10:51)
--- NOTE | 2018-01-12 10:56 | P.OP ---
- Preoperative Diagnosis (1) Closed comminuted fracture of hip Date of procedure: 01/12/18 Procedure: Right hip reduction and intramedullary nail fixation Anesthesia: EDGARDO Surgeon: Duane Joshi MD Office Cashier: SAHARA Carmichael PA-C The surgical procedure was assisted by my physician patient care nursing assistant. My P.A. presence was necessary throughout this case for the manipulation and positioning of the surgical extremity. My P.A. was assisting me throughout the duration of this procedure. The skill set of a physician patient care nursing assistant was medically necessary to complete this procedure. During the surgical case the proc tech was working at the back table and the physician patient care nursing assistant was directly assisting me. Operation and Findings: Implants used: Biomet 11 mm x 360 mm troch nail Plan of activity: Toe-touch weightbearing Patient was seen and evaluated preoperatively. The patient has significant hip pain from proximal femur fracture. The risk and benefits of surgery were discussed in depth with the patient to include bleeding, infection, nonunion, malunion, need for hip replacement, painful hardware, as well as medical competitions including blood clots, stroke, heart attack, and . Informed consent was obtained. Operative site was marked. Patient was brought to the operating room and placed on fracture table. IV sedation was administered by anesthesiologist. Timeout procedure was performed. Hip and leg were prepped with alcohol followed by DuraPrep and draped in the usual sterile fashion. IV antibiotics were given prior to incision. Procedure began with reduction of fracture. Traction was applied. The leg was manipulated to achieve reduction. Excellent reduction was achieved. Fluoroscopy was used to confirm reduction. A three inch incision was made proximal to the trochanter. Subcutaneous tissue was dissected bluntly. Guidepin was placed at the tip of the trochanter and advanced into the femoral canal. Fluoroscopy confirmed appropriate guidepin placement. A opening reamer was placed over the guidepin. A long ball tipped guide pin was now placed down the femoral canal into the center of the distal femur. The nail length was now measured. Fluoroscopy confirmed appropriate guidepin placement. Flexible reamers were now passed over the guidepin to ream the intramedullary canal. The nail was attached to the insertion handle. Nail was now placed over the guidepin into the femoral canal. Fluoroscopy confirmed appropriate nail placement. A second incision was made over the lateral thigh. Cannulas were placed through the insertion handle down to the femur. Guidepin was now placed through the femoral nail into the center of the femoral head. Fluoroscopy confirmed appropriate guidepin placement. Screw length was measured. Cannulated drill was placed over the guidepin. Appropriate length lag screw was now placed. Traction was released and compression was applied. The set screw was now tightened in dynamic mode. Next, using perfect [place] technique two distal interlocking screws were placed. Screw holes were predrilled and screw lengths were measured. Final fluoroscopy revealed well aligned fracture with well-placed hardware. Incision was closed with 3-0 Vicryl and tanika. Sterile dressings were applied. Patient was awakened and transferred to recovery room.
[2018-01-12] MEDS ORDERED: fentaNYL Citrate Inj 100 MCG/2 ML Ampul ONE (11:22)
[2018-01-12] MEDS ORDERED: *Meperidine Inj 25 MG/ML Vial PERIprocedural Use ONLY ONE (11:31)
[2018-01-12] MEDS ORDERED: *Labetalol HCl Inj 100 MG/20 ML Vial PERIprocedural Use ONLY IV.PUSH ONE (11:37)
[2018-01-12] MEDS ORDERED: Lidocaine PF 1% Inj 5 ML Syringe INFILTRATN ONE (12:00)
--- NOTE | 2018-01-12 12:25 | XR ---
EXAM DATE: 01/12/2018 12:21 PM EDT AGE/SEX: 87 years / Female INDICATIONS: Troch. Nail right femur. CLINICAL DATA: This is the patient's subsequent encounter. Patient reports that signs and symptoms h ave been present for 3 days and indicates a pain score of Nonresponsive. MEDICAL/SURGICAL HISTORY: Hypertension. Diabetes mellitus type II. Cardiovascular disease. Hy sterectomy. COMPARISON: [facility] [place], FEMUR RIGHT 2V, 01/10/2018. . FINDINGS: Multiple coned-down views of the femur were obtained intraoperatively using a matrix camera and demon strate placement of an intramedullary lisa with locking cannulated screws extending through the intert rochanteric fracture. The fracture fragments are in near-anatomic alignment. CONCLUSION: Status post open rigid internal fixation. Electronically signed by: Jeffrey Myers MD 01/12/2018 12:24 PM EDT
--- NOTE | 2018-01-12 14:06 | P.PN ---
Physical Exam Vital signs: Vital Signs 01/11/18 20:00 01/11/18 20:08 01/12/18 00:00 Temperature 97.8 F 98.1 F Pulse Rate 91 H 96 H 88 Respiratory Rate 18 18 Blood Pressure 137/61 148/65 H Pulse Oximetry 97 97 01/12/18 00:04 01/12/18 04:00 01/12/18 08:00 Temperature 98.4 F 98.1 F Pulse Rate 89 79 77 Respiratory Rate 18 16 Blood Pressure 158/67 H 144/63 H Pulse Oximetry 95 99 01/12/18 09:00 01/12/18 11:10 01/12/18 11:15 Temperature 97.7 F Pulse Rate 88 88 90 Respiratory Rate 20 17 Blood Pressure 138/69 188/70 H Pulse Oximetry 95 99 01/12/18 11:30 01/12/18 11:45 01/12/18 11:50 Temperature Pulse Rate 95 H 91 H 95 H Respiratory Rate 18 15 Blood Pressure 183/74 H 131/62 Pulse Oximetry 99 99 99 01/12/18 12:00 Temperature 98 F Pulse Rate 92 H Respiratory Rate 17 Blood Pressure 144/63 H Pulse Oximetry 99 Intake & Output 01/11/18 01/12/18 01/12/18 18:59 06:59 18:59 Intake Total 1898 / 1898 800 / 800 Output Total 900 / 900 475 / 475 225 / 225 Balance 998 / 998 -475 / -475 575 / 575 Weight 77.2 kg Intake: IV 951 / 951 NS Inj 1,000 ML @ 50 mls/hr IV. 900 / 900 CONT .Q20H [facility] Rx#:[id number] Vitamin K Inj 10 MG In D5W Inj 51 / 51 50 ML @ 102 mls/hr IV.SIG ONCE ONE Rx#:[id number] Oral 360 / 360 Anesthesia Amount 800 / 800 Intake (Blood Product) Amt 587 / 587 Plasma Thawed 5 Day Cp2d Unit 366 / 366 [id number] Plasma Thawed 5d Cp2d Pool 221 / 221 Unit [id number] Output: Urine 475 / 475 Estimated Blood Loss 75 / 75 Urine Amount (Catheter) 900 / 900 150 / 150 Indwelling Urethral Catheter 900 / 900 150 / 150 Other: Date of Last Bowel Movement 01/11/18 Narrative: Subjective: S/P surgery. In nad patient in bed appears sleepy had PT while in bed as she felt tired . no pain at this time. No n/v/d/c. Physical exam: GENERAL: Elderly female, in bed appears tired , not in acute distress. CARDIOVASCULAR: Regular rate and rhythm without murmurs, gallops, or rubs. RESPIRATORY: Breath sounds equal bilaterally. No accessory muscle use. GASTROINTESTINAL: Abdomen soft, non-tender, nondistended. MUSCULOSKELETAL: Right hip s/p surgery c/d/i. No cyanosis. Neurovascular intact. BACK: Nontender without obvious deformity. No CVA tenderness. Assessment and Plan 1. Right hip fracture Pelvic x-ray significant for comminuted intertrochanteric fracture of the right femur Orthopedic surgery consulted, appreciate recommendations S/p Right hip reduction and intramedullary nail fixation by Dr Rogers on 01/12/18 2. Atrial fibrillation anticoagulated on Coumadin INR 2.4 Continue home medications Takes Coumadin . Resume anticoagulation per surgeon 3. CHF Gentle IV fluid hydration as patient n.p.o. Continue home medications 4. Diabetes mellitus Sliding-scale insulin Monitor blood glucose DVT ppx scd/teds, chemical ppx per surgeon - Urinary Catheter Management Indwelling Urethral Catheter Cath placed during this visit: no Reason for continuing: Hourly intake/output Results - Labs CBC & Chem 7: 01/12/18 07:30 01/12/18 07:30 Laboratory Results - last 24 hr 01/11/18 01/12/18 01/12/18 21:53 04:01 07:02 WBC RBC Hgb Hct MCV MCH MCHC RDW Plt Count MPV Neut % (Auto) Lymph % (Auto) [place] % (Auto) Eos % (Auto) Baso % (Auto) Neut # (Auto) Lymph # (Auto) [place] # (Auto) Eos # (Auto) Baso # (Auto) WBC Differential Differential Comment PT INR Sodium Potassium Chloride Carbon Dioxide Anion Gap BUN Creatinine Estimated GFR POC Glucose 151 H 139 H 171 H Random Glucose Calcium 01/12/18 01/12/18 01/12/18 07:30 07:30 07:30 WBC 7.1 RBC 3.95 L Hgb 12.4 Hct 36.7 MCV 92.9 MCH 31.2 MCHC 33.6 RDW 14.2 Plt Count 124 L MPV 8.7 Neut % (Auto) 78.9 H Lymph % (Auto) 8.3 L [place] % (Auto) 12.6 H Eos % (Auto) 0.1 Baso % (Auto) 0.1 Neut # (Auto) 5.6 Lymph # (Auto) 0.6 L [place] # (Auto) 0.9 Eos # (Auto) 0.0 Baso # (Auto) 0.0 WBC Differential . Differential Comment Auto diff final PT 10.7 D INR 1.1 Sodium 138 Potassium 4.1 D Chloride 104 Carbon Dioxide 27.1 Anion Gap 7 BUN 11 Creatinine 0.74 Estimated GFR 75 L POC Glucose Random Glucose 139 H Calcium 8.4 L 01/12/18 11:14 WBC RBC Hgb Hct MCV MCH MCHC RDW Plt Count MPV Neut % (Auto) Lymph % (Auto) [place] % (Auto) Eos % (Auto) Baso % (Auto) Neut # (Auto) Lymph # (Auto) [place] # (Auto) Eos # (Auto) Baso # (Auto) WBC Differential Differential Comment PT INR Sodium Potassium Chloride Carbon Dioxide Anion Gap BUN Creatinine Estimated GFR POC Glucose 131 H Random Glucose Calcium Microbiology 01/10/18 21:00 Clean Catch Urine Urine Culture - Final >100,000 cfu/mL mixed gram positive jax (probable contaminantes) - Imaging Impressions Femur X-Ray 01/12/18 00:00 CONCLUSION: Status post open rigid internal fixation.
[2018-01-12] MEDS: Sod Chloride 0.9% Inj 1,000 ML IV.CONT SCH (15:05)
[2018-01-12] MEDS: Calcium/Vitamin D 250/125 MG Tablet PO SCH ×2 (15:06→17:52)
[2018-01-12] MEDS: Ezetimibe 10 MG Tablet PO SCH (15:06)
[2018-01-12] MEDS: Senna/Docusate Sodium 8.6/50 MG Tablet PO SCH ×2 (15:06→21:26)
[2018-01-12] MEDS: Lisinopril 10 MG Tablet PO SCH (15:06)
[2018-01-12] MEDS: FLUoxetine 10 MG Capsule PO SCH (15:06)
[2018-01-12] MEDS: Enoxaparin Inj 30 MG/0.3 ML Syringe SQ SCH (23:50)
[2018-01-13] MEDS: Insulin NovoLOG Aspart Correctional Sugar Inj SQ SCH ×5 (03:24→22:02)
--- NOTE | 2018-01-13 06:55 | P.PNOP ---
Subjective Interval history: POd 1 s/p IMN right hip doing well. resting comfortably. states minimal pain. Physical Exam Vital signs: Vital Signs 01/12/18 08:00 01/12/18 09:00 01/12/18 11:10 Temperature 98.1 F 97.7 F Pulse Rate 77 88 88 Respiratory Rate 16 20 Blood Pressure 144/63 H 138/69 Pulse Oximetry 99 95 01/12/18 11:15 01/12/18 11:30 01/12/18 11:45 Temperature Pulse Rate 90 95 H 91 H Respiratory Rate 17 18 15 Blood Pressure 188/70 H 183/74 H 131/62 Pulse Oximetry 99 99 99 01/12/18 11:50 01/12/18 12:00 01/12/18 20:00 Temperature 98 F 98.0 F Pulse Rate 95 H 94 H 92 H Respiratory Rate 17 18 Blood Pressure 146/71 H 119/53 L Pulse Oximetry 99 100 100 01/12/18 23:48 01/13/18 04:00 Temperature 98.3 F 98.2 F Pulse Rate 86 103 H Respiratory Rate 18 18 Blood Pressure 112/51 L 123/58 L Pulse Oximetry 100 100 Intake & Output 01/12/18 01/12/18 01/13/18 06:59 18:59 06:59 Intake Total 900 / 900 Output Total 475 / 475 225 / 225 350 / 350 Balance -475 / -475 675 / 675 -350 / -350 Weight 77.2 kg 77.2 kg Intake: IV 100 / 100 Ancef Inj 1,000 MG In NS Inj 100 / 100 100 ML @ 200 mls/hr IV.SIG Q8H [facility] Rx#:[id number] Anesthesia Amount 800 / 800 Output: Urine 475 / 475 350 / 350 Estimated Blood Loss 75 / 75 Urine Amount (Catheter) 150 / 150 Indwelling Urethral Catheter 150 / 150 Other: Date of Last Bowel Movement 01/11/18 01/10/18 Narrative: RLE: dressings clean and dry. intact. NVI - Urinary Catheter Management Indwelling Urethral Catheter Cath placed during this visit: no Reason for continuing: Hourly intake/output Results - Labs CBC & Chem 7: 01/12/18 07:30 01/12/18 07:30 Laboratory Results - last 24 hr 01/12/18 01/12/18 01/12/18 07:02 07:30 07:30 WBC 7.1 RBC 3.95 L Hgb 12.4 Hct 36.7 MCV 92.9 MCH 31.2 MCHC 33.6 RDW 14.2 Plt Count 124 L MPV 8.7 Neut % (Auto) 78.9 H Lymph % (Auto) 8.3 L [place] % (Auto) 12.6 H Eos % (Auto) 0.1 Baso % (Auto) 0.1 Neut # (Auto) 5.6 Lymph # (Auto) 0.6 L [place] # (Auto) 0.9 Eos # (Auto) 0.0 Baso # (Auto) 0.0 WBC Differential . Differential Comment Auto diff final PT 10.7 D INR 1.1 Sodium Potassium Chloride Carbon Dioxide Anion Gap BUN Creatinine Estimated GFR POC Glucose 171 H Random Glucose Calcium 01/12/18 01/12/18 01/12/18 07:30 11:14 17:43 WBC RBC Hgb Hct MCV MCH MCHC RDW Plt Count MPV Neut % (Auto) Lymph % (Auto) [place] % (Auto) Eos % (Auto) Baso % (Auto) Neut # (Auto) Lymph # (Auto) [place] # (Auto) Eos # (Auto) Baso # (Auto) WBC Differential Differential Comment PT INR Sodium 138 Potassium 4.1 D Chloride 104 Carbon Dioxide 27.1 Anion Gap 7 BUN 11 Creatinine 0.74 Estimated GFR 75 L POC Glucose 131 H 157 H Random Glucose 139 H Calcium 8.4 L 01/12/18 01/13/18 21:29 03:18 WBC RBC Hgb Hct MCV MCH MCHC RDW Plt Count MPV Neut % (Auto) Lymph % (Auto) [place] % (Auto) Eos % (Auto) Baso % (Auto) Neut # (Auto) Lymph # (Auto) [place] # (Auto) Eos # (Auto) Baso # (Auto) WBC Differential Differential Comment PT INR Sodium Potassium Chloride Carbon Dioxide Anion Gap BUN Creatinine Estimated GFR POC Glucose 176 H 140 H Random Glucose Calcium Microbiology 01/10/18 21:00 Clean Catch Urine Urine Culture - Final >100,000 cfu/mL mixed gram positive jax (probable contaminantes) - Imaging Impressions Femur X-Ray 01/12/18 00:00 CONCLUSION: Status post open rigid internal fixation. Assessment and Plan - Assessment and Plan 1) Right Intertroch Hip Fx s/p IMN - POD 1 -resume home dose coumadin -TTWB -daily dressing changes POD 2 -CM for REhab placement -f/u gurwinder Rogers or JASMYN in 2 weeks [employer] Prescription Drug Monitoring Database has been queried and verified prior to prescribing the controlled substance. Acute pain exception. This patient has normal, predicted, physiological, and time limited response to an adverse mechanical stimulus associated with surgery, trauma, or acute illness as described in my notes. There is a lack of alternative treatment options other than to include the prescribed narcotic treatment for this condition.
[2018-01-13] MEDS: Sod Chloride 0.9% Inj 1,000 ML IV.CONT SCH (08:23)
[2018-01-13] MEDS: Ezetimibe 10 MG Tablet PO SCH (08:25)
[2018-01-13] MEDS: Calcium/Vitamin D 250/125 MG Tablet PO SCH ×3 (08:26→17:08)
[2018-01-13] MEDS: Lisinopril 10 MG Tablet PO SCH (08:26)
[2018-01-13] MEDS: FLUoxetine 10 MG Capsule PO SCH (08:26)
[2018-01-13] MEDS: Senna/Docusate Sodium 8.6/50 MG Tablet PO SCH ×2 (08:26→21:25)
[2018-01-13] MEDS: Metoprolol Tartrate 50 MG Tablet PO SCH ×2 (08:26→21:25)
--- NOTE | 2018-01-13 08:55 | P.PN ---
Physical Exam Vital signs: Vital Signs 01/12/18 09:00 01/12/18 11:10 01/12/18 11:15 Temperature 97.7 F Pulse Rate 88 88 90 Respiratory Rate 20 17 Blood Pressure 138/69 188/70 H Pulse Oximetry 95 99 01/12/18 11:30 01/12/18 11:45 01/12/18 11:50 Temperature Pulse Rate 95 H 91 H 95 H Respiratory Rate 18 15 Blood Pressure 183/74 H 131/62 Pulse Oximetry 99 99 99 01/12/18 12:00 01/12/18 20:00 01/12/18 23:48 Temperature 98 F 98.0 F 98.3 F Pulse Rate 94 H 92 H 86 Respiratory Rate 17 18 18 Blood Pressure 146/71 H 119/53 L 112/51 L Pulse Oximetry 100 100 100 01/13/18 04:00 Temperature 98.2 F Pulse Rate 103 H Respiratory Rate 18 Blood Pressure 123/58 L Pulse Oximetry 100 Intake & Output 01/12/18 01/13/18 01/13/18 18:59 06:59 18:59 Intake Total 900 / 900 Output Total 225 / 225 350 / 350 Balance 675 / 675 -350 / -350 Weight 77.2 kg Intake: IV 100 / 100 Ancef Inj 1,000 MG In NS Inj 100 / 100 100 ML @ 200 mls/hr IV.SIG Q8H [facility] Rx#:[id number] Anesthesia Amount 800 / 800 Output: Urine 350 / 350 Estimated Blood Loss 75 / 75 Urine Amount (Catheter) 150 / 150 Indwelling Urethral Catheter 150 / 150 Other: Date of Last Bowel Movement 01/11/18 01/10/18 Narrative: Subjective: Right hip fracture S/P surgery. In bed appears sleepy, Some pain at the surgical site. No sob or cp. No n/v/d/c. Physical exam: GENERAL: Elderly female, in bed appears tired , not in acute distress. CARDIOVASCULAR: Regular rate and rhythm without murmurs, gallops, or rubs. RESPIRATORY: Breath sounds equal bilaterally. No accessory muscle use. GASTROINTESTINAL: Abdomen soft, non-tender, nondistended. MUSCULOSKELETAL: Right hip s/p surgery c/d/i. No cyanosis. Neurovascular intact. BACK: Nontender without obvious deformity. No CVA tenderness. Assessment and Plan 1. Right hip fracture Pelvic x-ray significant for comminuted intertrochanteric fracture of the right femur Orthopedic surgery consulted, appreciate recommendations S/p Right hip reduction and intramedullary nail fixation by Dr Rogers on 01/12/18 2. Atrial fibrillation anticoagulated on Coumadin INR 2.4 Continue home medications Takes Coumadin . Resume anticoagulation per surgeon 3. CHF DC IVF as patient is no longer NPO Continue home medications 4. Diabetes mellitus Sliding-scale insulin Monitor blood glucose DVT ppx scd/teds, chemical ppx per surgeon - Urinary Catheter Management Indwelling Urethral Catheter Cath placed during this visit: no Reason for continuing: Hourly intake/output Results - Labs CBC & Chem 7: 01/12/18 07:30 01/12/18 07:30 Laboratory Results - last 24 hr 01/12/18 01/12/18 01/12/18 11:14 17:43 21:29 POC Glucose 131 H 157 H 176 H 01/13/18 01/13/18 03:18 08:33 POC Glucose 140 H 138 H Microbiology 01/10/18 21:00 Clean Catch Urine Urine Culture - Final >100,000 cfu/mL mixed gram positive jax (probable contaminantes) - Imaging Impressions Femur X-Ray 01/12/18 00:00 CONCLUSION: Status post open rigid internal fixation.
[2018-01-14] MEDS: Enoxaparin Inj 30 MG/0.3 ML Syringe SQ SCH ×2 (02:55→23:21)
[2018-01-14] MEDS: Sod Chloride 0.9% Inj 1,000 ML IV.CONT SCH ×2 (02:55→22:36)
[2018-01-14] MEDS: Insulin NovoLOG Aspart Correctional Sugar Inj SQ SCH ×5 (04:18→21:00)
--- NOTE | 2018-01-14 07:19 | P.PNOP ---
Subjective Interval history: Resting comfortably with no new complaints. Patient has confusion Physical Exam Vital signs: Vital Signs 01/13/18 08:00 01/13/18 12:00 01/13/18 16:00 Temperature 98.3 F 98.7 F 98.6 F Pulse Rate 89 90 90 Respiratory Rate 18 16 16 Blood Pressure 121/53 L 136/63 149/67 H Pulse Oximetry 98 99 99 01/13/18 20:00 01/14/18 00:00 01/14/18 04:00 Temperature 98.5 F 98.6 F 98.5 F Pulse Rate 90 89 91 H Respiratory Rate 19 18 16 Blood Pressure 139/68 138/70 136/72 Pulse Oximetry 99 99 99 Intake & Output 01/13/18 01/14/18 01/14/18 18:59 06:59 18:59 Weight 77.3 kg Other: Date of Last Bowel Movement 01/10/18 01/13/18 Narrative: Right lower extremity: Clean dry dressings intact. Compartments soft. Intact sensation distally with active dorsiflexion plantar flexion foot - Urinary Catheter Management Indwelling Urethral Catheter Cath placed during this visit: no Reason for continuing: Hourly intake/output Results - Labs CBC & Chem 7: 01/12/18 07:30 01/12/18 07:30 Laboratory Results - last 24 hr 01/13/18 01/13/18 01/13/18 08:33 11:52 17:16 POC Glucose 138 H 210 H 140 H 01/13/18 01/14/18 21:32 03:52 POC Glucose 150 H 125 H Assessment and Plan - Assessment and Plan 1) Right Intertroch Hip Fx s/p IMN - POD 2 -resume home dose coumadin -TTWB -daily dressing changes -CM for Rehab placement -f[facility]u [facility] or [facility] in 2 weeks [facility] Prescription Drug Monitoring Database has been queried and verified prior to prescribing the controlled substance. Acute pain exception. This patient has normal, predicted, physiological, and time limited response to an adverse mechanical stimulus associated with surgery, trauma, or acute illness as described in my notes. There is a lack of alternative treatment options other than to include the prescribed narcotic treatment for this condition.
[2018-01-14] MEDS: Calcium/Vitamin D 250/125 MG Tablet PO SCH ×3 (08:34→17:07)
[2018-01-14] MEDS: Lisinopril 10 MG Tablet PO SCH (08:35)
[2018-01-14] MEDS: Ezetimibe 10 MG Tablet PO SCH (08:35)
[2018-01-14] MEDS: Metoprolol Tartrate 50 MG Tablet PO SCH ×2 (08:35→22:36)
[2018-01-14] MEDS: Senna/Docusate Sodium 8.6/50 MG Tablet PO SCH ×2 (08:35→22:36)
[2018-01-14] MEDS: FLUoxetine 10 MG Capsule PO SCH (08:35)
--- NOTE | 2018-01-14 13:58 | P.PN ---
Subjective Interval history: Follow up right hip fracture 01/14/18-patient seen and examined; alert and oriented x2. Afebrile Physical Exam Vital signs: Vital Signs 01/13/18 16:00 01/13/18 20:00 01/14/18 00:00 Temperature 98.6 F 98.5 F 98.6 F Pulse Rate 90 90 89 Respiratory Rate 16 18 Blood Pressure 149/67 H 139/68 138/70 Pulse Oximetry 99 99 99 01/14/18 04:00 01/14/18 08:00 01/14/18 12:00 Temperature 98.5 F 98.0 F 98.0 F Pulse Rate 91 H 109 H 80 Respiratory Rate 16 18 18 Blood Pressure 136/72 165/70 H 100/68 Pulse Oximetry 99 91 L 88 L Intake & Output 01/13/18 01/14/18 01/14/18 18:59 06:59 18:59 Weight 77.3 kg Other: Date of Last Bowel Movement 01/10/18 01/13/18 01/14/18 Narrative: GENERAL: NAD SKIN: Warm and dry. HEAD: Normocephalic. EYES: No scleral icterus. No injection or drainage. NECK: Supple, trachea midline. No JVD or lymphadenopathy. CARDIOVASCULAR: Regular rate and rhythm without murmurs, gallops, or rubs. RESPIRATORY: Breath sounds equal bilaterally. No accessory muscle use. GASTROINTESTINAL: Abdomen soft, non-tender, nondistended. MUSCULOSKELETAL: No cyanosis, or edema. BACK: Nontender without obvious deformity. No CVA tenderness. - Urinary Catheter Management Indwelling Urethral Catheter Cath placed during this visit: no Reason for continuing: Hourly intake/output Results - Labs CBC & Chem 7: 01/12/18 07:30 01/12/18 07:30 Laboratory Results - last 24 hr 01/13/18 01/13/18 01/14/18 17:16 21:32 03:52 POC Glucose 140 H 150 H 125 H 01/14/18 01/14/18 08:33 12:09 POC Glucose 101 119 H Assessment and Plan - Plan 87 years old female with 1. Right hip fracture Pelvic x-ray significant for comminuted intertrochanteric fracture of the right femur S/p Right hip reduction and intramedullary nail fixation by Dr Rogers on 01/12/18 PT to treat and eval 2. Atrial fibrillation anticoagulated on Coumadin INR 2.4 Continue home medications On Coumadin 3. CHF Continue home medications 4. Diabetes mellitus Sliding-scale insulin Monitor blood glucose DVT ppx scd/teds, chemical ppx per surgeon
[2018-01-15] MEDS: Insulin NovoLOG Aspart Correctional Sugar Inj SQ SCH ×2 (03:00→10:19)
[2018-01-15] MEDS: FLUoxetine 10 MG Capsule PO SCH (08:25)
[2018-01-15] MEDS: Calcium/Vitamin D 250/125 MG Tablet PO SCH (08:25)
[2018-01-15] MEDS: Ezetimibe 10 MG Tablet PO SCH (08:25)
[2018-01-15] MEDS: Senna/Docusate Sodium 8.6/50 MG Tablet PO SCH (08:25)
[2018-01-15] MEDS: Lisinopril 10 MG Tablet PO SCH (08:25)
[2018-01-15] MEDS: Metoprolol Tartrate 50 MG Tablet PO SCH (08:25)
[2018-01-15 08:48] VITALS: BP 126/62; PULSE 108; RESP 17; TEMP 100.2; O2SAT 99
--- NOTE | 2018-01-15 09:00 | P.PN ---
Physical Exam Vital signs: Vital Signs 01/14/18 12:00 01/14/18 16:00 01/14/18 19:00 Temperature 98.0 F 97.9 F 97.9 F Pulse Rate 80 94 H 117 H Respiratory Rate 18 Blood Pressure 100/68 127/69 138/68 Pulse Oximetry 88 L 91 L 96 01/14/18 23:03 01/15/18 04:36 01/15/18 08:00 Temperature 98.7 F 98.2 F 100.2 F H Pulse Rate 97 H 101 H 108 H Respiratory Rate 18 18 17 Blood Pressure 161/74 H 124/61 126/62 Pulse Oximetry 95 96 99 Intake & Output 01/14/18 01/15/18 01/15/18 18:59 06:59 18:59 Intake Total 720 / 720 360 / 360 Balance 720 / 720 360 / 360 Weight 77.3 kg Intake: Oral 720 / 720 360 / 360 Other: # Voids 4 # Incontinent Voids 4 Date of Last Bowel Movement 01/14/18 01/14/18 # Bowel Movements 0 Narrative: Subjective Follow up right hip fracture no events overnight plan to DC to [facility] Physical Exam GENERAL: NAD SKIN: Warm and dry. HEAD: Normocephalic. EYES: No scleral icterus. No injection or drainage. NECK: Supple, trachea midline. No JVD or lymphadenopathy. CARDIOVASCULAR: Regular rate and rhythm without murmurs, gallops, or rubs. RESPIRATORY: Breath sounds equal bilaterally. No accessory muscle use. GASTROINTESTINAL: Abdomen soft, non-tender, nondistended. MUSCULOSKELETAL: No cyanosis, or edema. BACK: Nontender without obvious deformity. No CVA tenderness. Assessment and Plan 87 years old female with 1. Right hip fracture Pelvic x-ray significant for comminuted intertrochanteric fracture of the right femur S/p Right hip reduction and intramedullary nail fixation by Dr Rogers on 01/12/18 PT to treat and eval 2. Atrial fibrillation anticoagulated on Coumadin INR 2.4 Continue home medications On Coumadin 3. CHF Continue home medications 4. Diabetes mellitus Sliding-scale insulin Monitor blood glucose DVT ppx scd/teds, chemical ppx per surgeon Patient improved. She is clear for discharge by orthopedics. Patient to follow -up as outpatient with PCP and consultants. Discharge fairly stable condition to [place] inpatient [facility]. - Urinary Catheter Management Indwelling Urethral Catheter Cath placed during this visit: no Reason for continuing: Hourly intake/output Results - Labs CBC & Chem 7: 01/12/18 07:30 01/12/18 07:30 Laboratory Results - last 24 hr 01/14/18 01/14/18 01/14/18 12:09 17:04 20:24 POC Glucose 119 H 132 H 185 H 01/15/18 01/15/18 03:34 08:24 POC Glucose 145 H 132 H
--- NOTE | 2018-01-15 09:53 | P.PNOP ---
Subjective Interval history: Patient resting comfortably this morning although does have some baseline confusion Physical Exam Vital signs: Vital Signs 01/14/18 12:00 01/14/18 16:00 01/14/18 19:00 Temperature 98.0 F 97.9 F 97.9 F Pulse Rate 80 94 H 117 H Respiratory Rate 18 17 18 Blood Pressure 100/68 127/69 138/68 Pulse Oximetry 88 L 91 L 96 01/14/18 23:03 01/15/18 04:36 01/15/18 08:00 Temperature 98.7 F 98.2 F 100.2 F H Pulse Rate 97 H 101 H 108 H Respiratory Rate 18 18 17 Blood Pressure 161/74 H 124/61 126/62 Pulse Oximetry 95 96 99 Intake & Output 01/14/18 01/15/18 01/15/18 18:59 06:59 18:59 Intake Total 720 / 720 360 / 360 Balance 720 / 720 360 / 360 Weight 77.3 kg Intake: Oral 720 / 720 360 / 360 Other: # Voids 4 # Incontinent Voids 4 Date of Last Bowel Movement 01/14/18 01/14/18 # Bowel Movements 0 Narrative: Awake, alert, no acute distress Right lower extremity: Dressings in place without significant drainage. There is mild edema about the thigh although soft and compressible compartments. Negative Homans. Patient is minimally cooperative with neuro exam but appears grossly intact. Brisk cap refill. - Urinary Catheter Management Indwelling Urethral Catheter Cath placed during this visit: no Reason for continuing: Hourly intake/output Results - Labs CBC & Chem 7: 01/12/18 07:30 01/12/18 07:30 Laboratory Results - last 24 hr 01/14/18 01/14/18 01/14/18 12:09 17:04 20:24 POC Glucose 119 H 132 H 185 H 01/15/18 01/15/18 03:34 08:24 POC Glucose 145 H 132 H Assessment and Plan - Assessment and Plan 1) Right Intertroch Hip Fx s/p IMN - POD 3 -resume home dose coumadin -TTWB -daily dressing changes -CM for Rehab placement -f/u gurwinder Rogers or JASMYN in 2 weeks [facility] Prescription Drug Monitoring Database has been queried and verified prior to prescribing the controlled substance. Acute pain exception. This patient has normal, predicted, physiological, and time limited response to an adverse mechanical stimulus associated with surgery, trauma, or acute illness as described in my notes. There is a lack of alternative treatment options other than to include the prescribed narcotic treatment for this condition.
--- NOTE | 2018-01-15 16:28 | P.DS ---
Date of admission: 01/11/18 00:00 Primary care physician: Aditya Galeana MD Brief History from admission: 87-year-old female with a past medical history significant for atrial fibrillation anticoagulated on Coumadin, CHF and diabetes mellitus since the emergency department for evaluation of a fall. The patient reports that she is dependent upon her walker for ambulation and was in the linen closet when she fell backwards injuring her right hip on the tile floor. She denies any head trauma or LOC. DS: Medications - Discharge Medications Prescriptions: hydrocodone-acetaminophen [Kingsley] 1 tab PO Q4H #40 tab DS: Summary Hospital Course: GENERAL: NAD SKIN: Warm and dry. HEAD: Normocephalic. EYES: No scleral icterus. No injection or drainage. NECK: Supple, trachea midline. No JVD or lymphadenopathy. CARDIOVASCULAR: Regular rate and rhythm without murmurs, gallops, or rubs. RESPIRATORY: Breath sounds equal bilaterally. No accessory muscle use. GASTROINTESTINAL: Abdomen soft, non-tender, nondistended. MUSCULOSKELETAL: No cyanosis, or edema. BACK: Nontender without obvious deformity. No CVA tenderness. Assessment and Plan 87 years old female with 1. Right hip fracture Pelvic x-ray significant for comminuted intertrochanteric fracture of the right femur S/p Right hip reduction and intramedullary nail fixation by Dr Rogers on 01/12/18 PT to treat and eval 2. Atrial fibrillation anticoagulated on Coumadin INR 2.4 Continue home medications On Coumadin 3. CHF Continue home medications 4. Diabetes mellitus Sliding-scale insulin Monitor blood glucose DVT ppx scd/teds, chemical ppx per surgeon Patient improved. She is clear for discharge by orthopedics. Patient to follow -up as outpatient with PCP and consultants. Discharge fairly stable condition to [place] inpatient [facility]. - Time Spent with Patient Total time spent providing and/or coordinating discharge services: Greater than 30 minutes - Quality: VTE Deep Vein Thrombosis/Pulmonary Embolism Present on Admission: No Exam Vital signs: Vital Signs 01/14/18 19:00 01/14/18 23:03 01/15/18 04:36 Temperature 97.9 F 98.7 F 98.2 F Pulse Rate 117 H 97 H 101 H Respiratory Rate 18 Blood Pressure 138/68 161/74 H 124/61 Pulse Oximetry 96 95 96 01/15/18 08:00 Temperature 100.2 F H Pulse Rate 108 H Respiratory Rate 17 Blood Pressure 126/62 Pulse Oximetry 99 Intake & Output 01/14/18 01/15/18 01/15/18 18:59 06:59 18:59 Intake Total 720 / 720 360 / 360 Balance 720 / 720 360 / 360 Weight 77.3 kg Intake: Oral 720 / 720 360 / 360 Other: # Voids 4 # Incontinent Voids 4 Date of Last Bowel Movement 01/14/18 01/14/18 01/13/18 # Bowel Movements 0 Results Procedures completed during hospitalization: S/p Right hip reduction and intramedullary nail fixation by Dr Rogers on 01/12/18 Labs on day of discharge: Labs from last 24 hours 01/15/18 01/15/18 01/14/18 08:24 03:34 20:24 POC Glucose 132 H 145 H 185 H 01/14/18 17:04 POC Glucose 132 H - Impressions ITS Impressions Head CT 01/10/18 19:59 CONCLUSION: 1. No acute bleed or other acute intracranial abnormality. 2. 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 No associated midline shift or significant mass effect. . Chest X-Ray 01/10/18 20:00 CONCLUSION: No acute cardiopulmonary disease demonstrated. Pelvis X-Ray 01/10/18 20:00 CONCLUSION: Comminuted intertrochanteric fracture of the right femur. Cervical Spine CT 01/10/18 20:02 CONCLUSION: 1. Intact cervical spine. 2. Multilevel degenerative changes as above. 3. Large posterior disc protrusion at C4/C5 with [id number] spinal stenosis. Abdomen/Pelvis CT 01/10/18 22:41 CONCLUSION: 1. Comminuted and displaced right proximal femur fracture. 2. Severe diverticulosis. 3. Atherosclerosis. 4. Hepatic cyst, and hypodense proximal pancreatic mass likely represents a cyst. Outpatient MRI/MRCP or dedicated pancreatic CT recommended for further characterization. 5. Cholelithiasis. Knee X-Ray 01/11/18 00:00 CONCLUSION: 1. Severe tricompartment osteoarthritic changes. Diffuse osseous demineralization. 2. No acute fracture or effusion. Femur X-Ray 01/12/18 00:00 CONCLUSION: Status post open rigid internal fixation. Discharge Plan - Discharge Disposition Patient Disposition: [facility] Inpatient - Discharge Condition Condition: Stable - Discharge Order Discharge Orders: Discharge Order (Routine); Ordered 01/15/18 Ordered By: Phyllis Yost - Physicians Team Primary Care Provider: Aditya Galeana Attending Provider: Phyllis Yost Other Providers: Allen Haque MD ; Duane Rogers MD
== END 2018-01-15 11:12 ==
LOC: NEPC 18:31 → NEDA 01-11 → NEDH 01-11 04:00 → N06 01-11 17:45
PROVIDERS: ADMIT Hospitalist; ATTEND Hospitalist